=== PATIENT | female | born 1945 | race Caucasian/White ===

== ENCOUNTER 2025-03-25 14:15 | Outpatient (RCR) | payer MEDICARE, SELFPAY ==
[2025-03-04 14:20] VITALS: BP 157/76; PULSE 73; RESP 16; TEMP 36.9; BMI 46.3
--- NOTE | 2025-03-04 17:22 | PCM.WC.HP ---
History of Present Illness Date of Service: 03/04/25 Chief Complaint: R holliday wound History of Wound: Karina Santana is a 79 y/o female who presents today for evaluation and management of a R holliday wound. She reports that this ulceration began as a large fluid-filled blister which then ruptured leaving behind this wound. When this first occurred in December, it was complicated by cellulitis for which she had a hospital admission 12/27-12/31 for IV antibiotic therapy and then was discharged on Augmentin for 14 days which she completed. Since being home, she has been caring for it primarily by wiping with shower wipes and bactine multiple times per day and then covering with gauze. She does have significant lymphedema which has been present over 10 years. She reports this is hereditary, her mother had it as well. She states she used to wrap her legs but got tired of doing so and admittedly has not been applying compression for a while. She has also been evaluated previously by Dr. Villa who placed venous stents in 2020, she reports this did not make any difference in her swelling; she is chronically anticoagulated with Eliquis reportedly due to the presence of these stents. She reports she saw him a few months ago and they were reportedly no concerns regarding the patency of her stents. She states her swelling has not acutely worsened at any point recently. He had directed her to order some compression wraps from [employer] however she could not find any in a size that would fit her. Her medical history is also significant for Lupus, RA, and Sjogren's syndrome for which she follows with rheumatology and takes methotrexate. She is not diabetic. She does not smoke. Her mobility is limited due to pain from her autoimmune conditions and her severe lymphedema. [facility] Home Medications ?Medication ?Instructions ?Recorded ?Last Taken ?Type apixaban 2.5 mg tablet (Eliquis) 2.5 mg PO BID 03/04/25 Unknown History baclofen 10 mg tablet 5 - 10 mg PO TID PRN PRN muscle 03/04/25 Unknown History spasm cholecalciferol (vitamin D3) 1,250 2,500 mcg PO QWEEK 03/04/25 Unknown History mcg (50,000 unit) capsule folic acid 1 mg tablet 4 mg PO DAILY 03/04/25 Unknown History hydroxychloroquine 200 mg tablet 200 mg PO BID 03/04/25 Unknown History levothyroxine 100 mcg tablet 100 mcg PO DAILY 03/04/25 Unknown History methotrexate sodium 2.5 mg tablet 7.5 mg PO QWEEK 03/04/25 Unknown History mupirocin 2 % topical ointment topical 03/04/25 Unknown History nystatin 100,000 unit/gram topical topical 03/04/25 Unknown History powder (Klayesta) pantoprazole 40 mg tablet,delayed 40 mg PO DAILY 03/04/25 Unknown History release pilocarpine HCl 5 mg tablet 5 mg PO 5X/DAY 03/04/25 Unknown History potassium chloride 20 mEq 40 meq PO DAILY 03/04/25 Unknown History tablet,extended release(part/cryst) (Klor-Con M) pregabalin 75 mg capsule 75 mg PO TID 03/04/25 Unknown History sulfamethoxazole 400 tab 03/04/25 Unknown History mg-trimethoprim 80 mg tablet Allergy/AdvReac Type Severity Reaction Status Date / Time NSAIDS (Non-Steroidal AdvReac Other Verified 03/04/25 14:01 Anti-Inflamma Social History Smoking Status: Never smoker Vital Signs Vital Signs Vital Signs: 03/04/25 14:20 Temperature 98.4 F Temperature Source Temporal Pulse Rate 73 Respiratory Rate 16 Blood Pressure 157/76 H Blood Pressure Mean 103 Blood Pressure Source Monitor Blood Pressure Position Sitting Blood Pressure Location Left Forearm Weight Weight: 270 lb 3.969 oz Body Mass Index (BMI) 46.3 Physical Exam Const alert, oriented x3 and no apparent distress General Appearance: cooperative HEENT normocephalic, head/scalp atraumatic, hearing grossly normal bilaterally, external ears normal and external nose normal Eyes General Eye: normal appearance of both eyes Neck General: normal visual inspection and trachea midline Lymph Lymphatic: lymphedema elephantiasis Resp normal respiratory effort and normal air movement Effort and Inspection: able to speak in complete sentences; Negative for labored, grunting or stridor Cardio regular rate and regular rhythm Extremity Extremity Narrative: Significant bilateral lower extremity edema consistent with elephantiasis/stage IV lymphedema Skin Wounds: wounds noted Wound Narrative: R holliday with large, superficial ulceration with pink base with moderate slough/bioburden; there lipodermatosclerosis bilaterally but otherwise no excessive erythema/warmth and no foul odor. Serous drainage. Neuro CN's II-XII intact bilaterally, moves all extremities and no focal motor deficits Speech: speech normal Psych mental status grossly normal Appearance: grossly normal Attitude: calm and engaged Activity / Motor Behavior: appropriate eye contact Speech: normal speech Debridement Note Debridement Note Wound debrided: R anterior holliday Laterality: Right Type of Debridement: Excisional debridement Anesthesia Used: 5% Lidocaine Gel Depth: Down to and including healthy tissue Percentage of wound debrided: 100 Instrument Used: 7mm curette Tissue Removed: slough, devitalized tissue Severity: Limited To Skin Breakdown Amount of bleeding with debridement: Mild Bleeding Controlled with: Pressure Patient tolerated procedure: Patient tolerated procedure well No debridement was completed: No debridement was completed today Post-Debridement Measurements and Additional Note: Post-Debridement Measurements/Treatment - Nurse 1 - General Ulcer Assessment Start: 03/04/25 14:20 Freq: Status: Active Protocol: VICK Activity Type Activity Date Activity User E-sign Co-sign Detail Recorded Client Recorded Date Recorded By Document 03/04/25 14:20 CP [id number] 03/04/25 14:36 CP Edit Result 03/04/25 14:20 CP (1) [id number] 03/04/25 15:42 DL (1) Weight => 270 lb 3.969 oz Weight in Pounds => 270.2 lbs Body Mass Index (BMI) => 46.3 BMI Classification => Obese 03/04/25 14:20 - Today's Visit Information Type of service Initial Visit Arrival Mode Wheelchair Patient Identification Verified (Name & Yes ) Patient Requires Transmission-Based No Precautions Height and Weight Height 5 ft 4 in Weight 270 lb 3.969 oz Weight in Pounds 270.2 lbs Body Mass Index (BMI) 46.3 BMI Classification Obese Vital Signs Temperature (97.8 F-99.1 F) 98.4 F Temperature Source Temporal Pulse Rate (60-100) 73 Pulse Location Monitor Respiratory Rate (12-18) 16 Respiratory rate source Observation Blood Pressure (90/60-120/80) 157/76 H Blood Pressure Mean 103 Source Monitor Position Sitting Blood Pressure Location Left Forearm Pain Scale: 0-10 Numeric Is Patient Pain Free? No generalized -Description Aching -Duration (hours) Chronic -Pain Behavior No Change in Behavior -Alleviating Factors/Interventions Medication -Effectiveness of Alleviating Factor/ Moderately Intervention effective Lower Extremity Assessment/ Foot Assessment/ Toe Nail Assessment Right -Dorsalis Pedis Doppler Multiphasic -Hair Growth on Legs No -Hair Growth on Toes No -Temperature of Extremity Warm -Dependent Rubor Yes -Prior Foot Ulcer No -Charcot Joint No -Prior Amputation No -Thick No -Discolored Yes -Deformed No -Improper Length & Hygeine Yes Left -Dorsalis Pedis Palpable Yes -Dorsalis Pedis Doppler Multiphasic -Hair Growth on Legs No -Hair Growth on Toes No -Temperature of Extremity Warm -Capillary Refill Less than 3 Seconds -Dependent Rubor Yes -Lipodermatosclerosis Yes -Prior Foot Ulcer No -Charcot Joint No -Prior Amputation No -Thick Yes -Discolored No -Deformed No -Improper Length & Hygeine No Communication Assessment Preferred language Mongolian Debone Supervisor Required No Able to Read Yes Able to Write Yes Communication Tools None Caregiver Communication Skills No Impairment Impairment Right Hearing Abillity Normal Left Hearing Abillity Normal Visual Assistive Devices Glasses Teaching Assessment Preferences Verbal,Written, Demonstration Barriers to Learning None Readiness To Learn Excellent Willingness to Engage in Self Management High Activies Readiness to Engage in Self Management High Activities Anxiety Level Calm Cooperation Cooperative Perception Coherent Interest in Health Problem Asks Questions Education Importance Acknowledges Need Does Patient Smoke tobacco or other No substances Smoking Status Never smoker Is Patient Diabetic No Functional Assessment Recent Decline in Ability to Perform Ambulation, Bathing Assistive Device With Patient N/A Culture/Voodoo/Sales Representative [employer] Cultural/Voodoo Needs that may affect No Treatment Plan Would you allow our hospital call circuit worker to No meet you for the purpose of spiritual/ emotional support? Sales Representative [employer] to contact place of methodist No Teaching: Wound Center *Welcome to the Wound Center -Person Taught Patient,Family -Teaching Method Discussion -Response to teaching Verbalize Understanding WC - Nurse 1 - General Ulcer Measurement Start: 03/04/25 14:20 Freq: Status: Active Protocol: Activity Type Activity Date Activity User E-sign Co-sign Detail Recorded Client Recorded Date Recorded By Document 03/04/25 14:20 CP [id number] 03/04/25 14:36 CP 03/04/25 14:20 Wound Center Nurse 1 1 right ant lower extrem -Current Size (cm) - Length 7 -Current Size (cm) - Width 7 -Current Size (cm) - Depth 0.1 -Total Square Cm 49 -Photo Taken Yes -Epithelialization None Present -Tunneling No -Undermining/Tunneling No -Exudate Amt Small -Exudate Type Serous -Wound Margin Flat & Intact -Granulation Amt Large (67-100%) -Granulation Quality Red -Slough/Fibrin No -Structure Exposed N/A -Texture (Mari-wound Skin Appearance) No Abnormality -Moisture (Mari-wound Skin Appearance) No Abnormality -Color (Mari-wound Skin Appearance) No Abnormality -Temperature (Mari-wound Skin No Abnormality Appearance) (Pt Warm) -Tenderness on Palpation (Mari-wound No Skin Appearance) -Ulcer Cleansing Rinsed/ Irrigated with Saline -Foul Odor after Cleansing No -Anesthetic Used 4% Lidocaine Solution Right Calf (cm) 68 Right Ankle (cm) 39.5 Left Calf (cm) 71.5 Left Ankle (cm) 42 WC - Nurse 2 - General Ulcer CM Notes Start: 03/04/25 14:20 Freq: Status: Active Protocol: Activity Type Activity Date Activity User E-sign Co-sign Detail Recorded Client Recorded Date Recorded By Document 03/04/25 15:00 [id number] 03/04/25 15:15 03/04/25 15:00 Wound Center Nurse 2 1 right ant lower extrem -Time 15:00 -Correct Patient Yes -Correct Side, Site, Position Yes -Correct Procedure Yes -Procedure Performed Yes -Type of Procedure Debridement -Clinical Debridement Subcutaneous -Tissue Removed Subcutaneous -Post Debridement (cm) - Length 7.5 -Post Debridement (cm) - Width 7.2 -Post Debridement (cm) - Depth 0.1 -Total Square (Post) (cm) 54.00 -Area of Debridement (cm) - Length 7.5 -Area of Debridement (cm) - Width 7.2 -Total Square (Area) (cm) 54.00 -Tunneling No -Undermining/Tunneling No -Circular Undermining No -Wound/Ulcer Outcome Not Healed -Ulcer Cleansing Rinsed/ Irrigated with Saline -Foul Odor after Cleansing No -Bioengineered Tissue No -Bleeding Controlled with Pressure -Treatment Response Procedure Tolerated Well -Offloading No -Debridement - Subq, 1st 20sq cm Yes -Debridement, SubQ, ea addt'l 20sq cm 2 or part thereof Pain Scale: 0-10 Numeric Is Patient Pain Free? Yes WC - Nurse 3 - General Ulcer D/C NN Start: 03/04/25 14:20 Freq: Status: Active Protocol: Activity Type Activity Date Activity User E-sign Co-sign Detail Recorded Client Recorded Date Recorded By Document 03/04/25 15:36 [facility] [id number] 03/04/25 15:38 [facility] 03/04/25 15:36 Wound Care Center Nurse 3 1 right ant lower extrem -Ulcer Cleansing Rinsed/ Irrigated with Saline -Foul Odor after Cleansing No -Primary Dressing Applied Aquacel Extra -Other Dressing drsg per dl washtub worker -Aquacel Extra 1 BLE -Multi-Layered Wrap Application Unna Boot - Bilateral -Other applied per dl washtub worker -Unna- Bilat (Qty applied) 1 Pain Scale: 0-10 Numeric Is Patient Pain Free? Yes WC - Visit Discharge Discharge Condition Stable Ambulatory Status Wheelchair Transportation Private Auto Charges/Coding Visit Charges Office Visits / Consults: [id number] OV L3 New 30min Procedures Integumentary [id number]: [id number] Ksenia subq tissue 20 sq cm/< (debridement to the depth of the dermis) Assessment/Plan Assessment/Plan (1) Ulcer of right holliday limited to breakdown of skin: CODE(S): L97.811 - Non-pressure chronic ulcer of other part of right lower leg limited to breakdown of skin (2) Lymphedema: CODE(S): I89.0 - Lymphedema, not elsewhere classified (3) Rheumatoid arthritis: CODE(S): M06.9 - Rheumatoid arthritis, unspecified (4) Lupus: (5) Sjogren syndrome: CODE(S): M35.00 - Sjogren syndrome, unspecified (6) Debility: CODE(S): R53.81 - Other malaise PLAN: Plan She has stage IV lymphedema which seems to be hereditary and by exam may also have a component of lipedema contributing; this has led to these recurrent fluid-filled blisters and subsequent ulcerations. For both wound care and compression will apply Unna boots bilaterally this week. For the R holliday wound, will cover with Aquacel Extra followed by the Unna boot. She is instructed to leave the Unna boot in place all week and to keep it clean and dry at all times. Nurse visit skilled nursing through the week was offered for an Unna boot change but she declined due to transportation concerns. Could consider HHC in the future as needed. We discussed the importance of compression in lymphedema management. I also believe she would benefit significantly from lymphedema pumps to assist with management of her edema. We will proceed with a few weeks of compression wraps and see what progress may be made and then ultimately anticipate submitting to insurance for lymphedema pumps and compression garments. No signs/symptoms if infection on exam today. She will return to the office in 1 week, sooner as needed.
--- NOTE | 2025-03-04 17:22 | PCM.WC.HP ---
History of Present Illness Date of Service: 03/04/25 Chief Complaint: R holliday wound History of Wound: Karina Santana is a 79 y/o female who presents today for evaluation and management of a R holliday wound. She reports that this ulceration began as a large fluid-filled blister which then ruptured leaving behind this wound. When this first occurred in December, it was complicated by cellulitis for which she had a hospital admission 12/27-12/31 for IV antibiotic therapy and then was discharged on Augmentin for 14 days which she completed. Since being home, she has been caring for it primarily by wiping with shower wipes and bactine multiple times per day and then covering with gauze. She does have significant lymphedema which has been present over 10 years. She reports this is hereditary, her mother had it as well. She states she used to wrap her legs but got tired of doing so and admittedly has not been applying compression for a while. She has also been evaluated previously by Dr. Villa who placed venous stents in 2020, she reports this did not make any difference in her swelling; she is chronically anticoagulated with Eliquis reportedly due to the presence of these stents. She reports she saw him a few months ago and they were reportedly no concerns regarding the patency of her stents. She states her swelling has not acutely worsened at any point recently. He had directed her to order some compression wraps from [employer] however she could not find any in a size that would fit her. Her medical history is also significant for Lupus, RA, and Sjogren's syndrome for which she follows with rheumatology and takes methotrexate. She is not diabetic. She does not smoke. Her mobility is limited due to pain from her autoimmune conditions and her severe lymphedema. [facility] Home Medications ?Medication ?Instructions ?Recorded ?Last Taken ?Type apixaban 2.5 mg tablet (Eliquis) 2.5 mg PO BID 03/04/25 Unknown History baclofen 10 mg tablet 5 - 10 mg PO TID PRN PRN muscle 03/04/25 Unknown History spasm cholecalciferol (vitamin D3) 1,250 2,500 mcg PO QWEEK 03/04/25 Unknown History mcg (50,000 unit) capsule folic acid 1 mg tablet 4 mg PO DAILY 03/04/25 Unknown History hydroxychloroquine 200 mg tablet 200 mg PO BID 03/04/25 Unknown History levothyroxine 100 mcg tablet 100 mcg PO DAILY 03/04/25 Unknown History methotrexate sodium 2.5 mg tablet 7.5 mg PO QWEEK 03/04/25 Unknown History mupirocin 2 % topical ointment topical 03/04/25 Unknown History nystatin 100,000 unit/gram topical topical 03/04/25 Unknown History powder (Klayesta) pantoprazole 40 mg tablet,delayed 40 mg PO DAILY 03/04/25 Unknown History release pilocarpine HCl 5 mg tablet 5 mg PO 5X/DAY 03/04/25 Unknown History potassium chloride 20 mEq 40 meq PO DAILY 03/04/25 Unknown History tablet,extended release(part/cryst) (Klor-Con M) pregabalin 75 mg capsule 75 mg PO TID 03/04/25 Unknown History sulfamethoxazole 400 tab 03/04/25 Unknown History mg-trimethoprim 80 mg tablet Allergy/AdvReac Type Severity Reaction Status Date / Time NSAIDS (Non-Steroidal AdvReac Other Verified 03/04/25 14:01 Anti-Inflamma Social History Smoking Status: Never smoker Vital Signs Vital Signs Vital Signs: 03/04/25 14:20 Temperature 98.4 F Temperature Source Temporal Pulse Rate 73 Respiratory Rate 16 Blood Pressure 157/76 H Blood Pressure Mean 103 Blood Pressure Source Monitor Blood Pressure Position Sitting Blood Pressure Location Left Forearm Weight Weight: 270 lb 3.969 oz Body Mass Index (BMI) 46.3 Physical Exam Const alert, oriented x3 and no apparent distress General Appearance: cooperative HEENT normocephalic, head/scalp atraumatic, hearing grossly normal bilaterally, external ears normal and external nose normal Eyes General Eye: normal appearance of both eyes Neck General: normal visual inspection and trachea midline Lymph Lymphatic: lymphedema elephantiasis Resp normal respiratory effort and normal air movement Effort and Inspection: able to speak in complete sentences; Negative for labored, grunting or stridor Cardio regular rate and regular rhythm Extremity Extremity Narrative: Significant bilateral lower extremity edema consistent with elephantiasis/stage IV lymphedema Skin Wounds: wounds noted Wound Narrative: R holliday with large, superficial ulceration with pink base with moderate slough/bioburden; there lipodermatosclerosis bilaterally but otherwise no excessive erythema/warmth and no foul odor. Serous drainage. Neuro CN's II-XII intact bilaterally, moves all extremities and no focal motor deficits Speech: speech normal Psych mental status grossly normal Appearance: grossly normal Attitude: calm and engaged Activity / Motor Behavior: appropriate eye contact Speech: normal speech Debridement Note Debridement Note Wound debrided: R anterior holliday Laterality: Right Type of Debridement: Excisional debridement Anesthesia Used: 5% Lidocaine Gel Depth: Down to and including healthy tissue Percentage of wound debrided: 100 Instrument Used: 7mm curette Tissue Removed: slough, devitalized tissue Severity: Limited To Skin Breakdown Amount of bleeding with debridement: Mild Bleeding Controlled with: Pressure Patient tolerated procedure: Patient tolerated procedure well No debridement was completed: No debridement was completed today Post-Debridement Measurements and Additional Note: Post-Debridement Measurements/Treatment - Nurse 1 - General Ulcer Assessment Start: 03/04/25 14:20 Freq: Status: Active Protocol: VICK Activity Type Activity Date Activity User E-sign Co-sign Detail Recorded Client Recorded Date Recorded By Document 03/04/25 14:20 CP [id number] 03/04/25 14:36 CP Edit Result 03/04/25 14:20 CP (1) [id number] 03/04/25 15:42 DL (1) Weight => 270 lb 3.969 oz Weight in Pounds => 270.2 lbs Body Mass Index (BMI) => 46.3 BMI Classification => Obese 03/04/25 14:20 - Today's Visit Information Type of service Initial Visit Arrival Mode Wheelchair Patient Identification Verified (Name & Yes ) Patient Requires Transmission-Based No Precautions Height and Weight Height 5 ft 4 in Weight 270 lb 3.969 oz Weight in Pounds 270.2 lbs Body Mass Index (BMI) 46.3 BMI Classification Obese Vital Signs Temperature (97.8 F-99.1 F) 98.4 F Temperature Source Temporal Pulse Rate (60-100) 73 Pulse Location Monitor Respiratory Rate (12-18) 16 Respiratory rate source Observation Blood Pressure (90/60-120/80) 157/76 H Blood Pressure Mean 103 Source Monitor Position Sitting Blood Pressure Location Left Forearm Pain Scale: 0-10 Numeric Is Patient Pain Free? No generalized -Description Aching -Duration (hours) Chronic -Pain Behavior No Change in Behavior -Alleviating Factors/Interventions Medication -Effectiveness of Alleviating Factor/ Moderately Intervention effective Lower Extremity Assessment/ Foot Assessment/ Toe Nail Assessment Right -Dorsalis Pedis Doppler Multiphasic -Hair Growth on Legs No -Hair Growth on Toes No -Temperature of Extremity Warm -Dependent Rubor Yes -Prior Foot Ulcer No -Charcot Joint No -Prior Amputation No -Thick No -Discolored Yes -Deformed No -Improper Length & Hygeine Yes Left -Dorsalis Pedis Palpable Yes -Dorsalis Pedis Doppler Multiphasic -Hair Growth on Legs No -Hair Growth on Toes No -Temperature of Extremity Warm -Capillary Refill Less than 3 Seconds -Dependent Rubor Yes -Lipodermatosclerosis Yes -Prior Foot Ulcer No -Charcot Joint No -Prior Amputation No -Thick Yes -Discolored No -Deformed No -Improper Length & Hygeine No Communication Assessment Preferred language Mexican Lead Tank Mechanic Required No Able to Read Yes Able to Write Yes Communication Tools None Caregiver Communication Skills No Impairment Impairment Right Hearing Abillity Normal Left Hearing Abillity Normal Visual Assistive Devices Glasses Teaching Assessment Preferences Verbal,Written, Demonstration Barriers to Learning None Readiness To Learn Excellent Willingness to Engage in Self Management High Activies Readiness to Engage in Self Management High Activities Anxiety Level Calm Cooperation Cooperative Perception Coherent Interest in Health Problem Asks Questions Education Importance Acknowledges Need Does Patient Smoke tobacco or other No substances Smoking Status Never smoker Is Patient Diabetic No Functional Assessment Recent Decline in Ability to Perform Ambulation, Bathing Assistive Device With Patient N/A Culture/Baptist/Clinical Administrative Coordinator Cultural/Baptist Needs that may affect No Treatment Plan Would you allow our hospital cashier ticket selling to No meet you for the purpose of spiritual/ emotional support? Clinical Administrative Coordinator to contact place of quaker No Teaching: Wound Center *Welcome to the Wound Center -Person Taught Patient,Family -Teaching Method Discussion -Response to teaching Verbalize Understanding WC - Nurse 1 - General Ulcer Measurement Start: 03/04/25 14:20 Freq: Status: Active Protocol: Activity Type Activity Date Activity User E-sign Co-sign Detail Recorded Client Recorded Date Recorded By Document 03/04/25 14:20 CP [id number] 03/04/25 14:36 CP 03/04/25 14:20 Wound Center Nurse 1 1 right ant lower extrem -Current Size (cm) - Length 7 -Current Size (cm) - Width 7 -Current Size (cm) - Depth 0.1 -Total Square Cm 49 -Photo Taken Yes -Epithelialization None Present -Tunneling No -Undermining/Tunneling No -Exudate Amt Small -Exudate Type Serous -Wound Margin Flat & Intact -Granulation Amt Large (67-100%) -Granulation Quality Red -Slough/Fibrin No -Structure Exposed N/A -Texture (Mari-wound Skin Appearance) No Abnormality -Moisture (Mari-wound Skin Appearance) No Abnormality -Color (Mari-wound Skin Appearance) No Abnormality -Temperature (Mari-wound Skin No Abnormality Appearance) (Pt Warm) -Tenderness on Palpation (Mari-wound No Skin Appearance) -Ulcer Cleansing Rinsed/ Irrigated with Saline -Foul Odor after Cleansing No -Anesthetic Used 4% Lidocaine Solution Right Calf (cm) 68 Right Ankle (cm) 39.5 Left Calf (cm) 71.5 Left Ankle (cm) 42 WC - Nurse 2 - General Ulcer CM Notes Start: 03/04/25 14:20 Freq: Status: Active Protocol: Activity Type Activity Date Activity User E-sign Co-sign Detail Recorded Client Recorded Date Recorded By Document 03/04/25 15:00 [id number] 03/04/25 15:15 03/04/25 15:00 Wound Center Nurse 2 1 right ant lower extrem -Time 15:00 -Correct Patient Yes -Correct Side, Site, Position Yes -Correct Procedure Yes -Procedure Performed Yes -Type of Procedure Debridement -Clinical Debridement Subcutaneous -Tissue Removed Subcutaneous -Post Debridement (cm) - Length 7.5 -Post Debridement (cm) - Width 7.2 -Post Debridement (cm) - Depth 0.1 -Total Square (Post) (cm) 54.00 -Area of Debridement (cm) - Length 7.5 -Area of Debridement (cm) - Width 7.2 -Total Square (Area) (cm) 54.00 -Tunneling No -Undermining/Tunneling No -Circular Undermining No -Wound/Ulcer Outcome Not Healed -Ulcer Cleansing Rinsed/ Irrigated with Saline -Foul Odor after Cleansing No -Bioengineered Tissue No -Bleeding Controlled with Pressure -Treatment Response Procedure Tolerated Well -Offloading No -Debridement - Subq, 1st 20sq cm Yes -Debridement, SubQ, ea addt'l 20sq cm 2 or part thereof Pain Scale: 0-10 Numeric Is Patient Pain Free? Yes WC - Nurse 3 - General Ulcer D/C NN Start: 03/04/25 14:20 Freq: Status: Active Protocol: Activity Type Activity Date Activity User E-sign Co-sign Detail Recorded Client Recorded Date Recorded By Document 03/04/25 15:36 [facility] [id number] 03/04/25 15:38 [facility] 03/04/25 15:36 Wound Care Center Nurse 3 1 right ant lower extrem -Ulcer Cleansing Rinsed/ Irrigated with Saline -Foul Odor after Cleansing No -Primary Dressing Applied Aquacel Extra -Other Dressing drsg per dl property and casualty insurance agent -Aquacel Extra 1 BLE -Multi-Layered Wrap Application Unna Boot - Bilateral -Other applied per dl property and casualty insurance agent -Unna- Bilat (Qty applied) 1 Pain Scale: 0-10 Numeric Is Patient Pain Free? Yes WC - Visit Discharge Discharge Condition Stable Ambulatory Status Wheelchair Transportation Private Auto Charges/Coding Visit Charges Office Visits / Consults: [id number] OV L3 New 30min Procedures Integumentary [id number]: [id number] Ksenia subq tissue 20 sq cm/< (debridement to the depth of the dermis) Assessment/Plan Assessment/Plan (1) Ulcer of right holliday limited to breakdown of skin: CODE(S): L97.811 - Non-pressure chronic ulcer of other part of right lower leg limited to breakdown of skin (2) Lymphedema: CODE(S): I89.0 - Lymphedema, not elsewhere classified (3) Rheumatoid arthritis: CODE(S): M06.9 - Rheumatoid arthritis, unspecified (4) Lupus: (5) Sjogren syndrome: CODE(S): M35.00 - Sjogren syndrome, unspecified (6) Debility: CODE(S): R53.81 - Other malaise PLAN: Plan She has stage IV lymphedema which seems to be hereditary and by exam may also have a component of lipedema contributing; this has led to these recurrent fluid-filled blisters and subsequent ulcerations. For both wound care and compression will apply Unna boots bilaterally this week. For the R holliday wound, will cover with Aquacel Extra followed by the Unna boot. She is instructed to leave the Unna boot in place all week and to keep it clean and dry at all times. Nurse visit nursing home through the week was offered for an Unna boot change but she declined due to transportation concerns. Could consider HHC in the future as needed. We discussed the importance of compression in lymphedema management. I also believe she would benefit significantly from lymphedema pumps to assist with management of her edema. We will proceed with a few weeks of compression wraps and see what progress may be made and then ultimately anticipate submitting to insurance for lymphedema pumps and compression garments. No signs/symptoms if infection on exam today. She will return to the office in 1 week, sooner as needed.
--- NOTE | 2025-03-05 10:20 | WC ---
PHOTO 03/04/25 RIGHT ANTERIOR LEG
--- NOTE | 2025-03-05 10:20 | WC ---
PHOTO 03/04/25 RIGHT ANTERIOR LEG
--- NOTE | 2025-03-11 08:55 | PCM.WC.PN ---
History of Present Illness Date of Service: 03/11/25 Chief Complaint: R holliday wound History of Wound: Karina Santana is a 79 y/o female who presents today for evaluation and management of a R holliday wound. She reports that this ulceration began as a large fluid-filled blister which then ruptured leaving behind this wound. When this first occurred in December, it was complicated by cellulitis for which she had a hospital admission 12/27-12/31 for IV antibiotic therapy and then was discharged on Augmentin for 14 days which she completed. Since being home, she has been caring for it primarily by wiping with shower wipes and bactine multiple times per day and then covering with gauze. She does have significant lymphedema which has been present over 10 years. She reports this is hereditary, her mother had it as well. She states she used to wrap her legs but got tired of doing so and admittedly has not been applying compression for a while. She has also been evaluated previously by Dr. Villa who placed venous stents in 2020, she reports this did not make any difference in her swelling; she is chronically anticoagulated with Eliquis reportedly due to the presence of these stents. She reports she saw him a few months ago and they were reportedly no concerns regarding the patency of her stents. She states her swelling has not acutely worsened at any point recently. He had directed her to order some compression wraps from [employer] however she could not find any in a size that would fit her. Her medical history is also significant for Lupus, RA, and Sjogren's syndrome for which she follows with rheumatology and takes methotrexate. She is not diabetic. She does not smoke. Her mobility is limited due to pain from her autoimmune conditions and her severe lymphedema. Subjective Subjective Karina has done well over this past week. She tolerated the Unna boots well, they did get itchy by the end of the week but she resisted scratching. She has no new concerns. Objective Data Objective Data Vital Signs: Vital Signs Temp Pulse Resp BP 98.4 F 73 16 157/76 H 03/04/25 14:20 03/04/25 14:20 03/04/25 14:20 03/04/25 14:20 Weight: 270 lb 3.969 oz Body Mass Index (BMI) 46.3 Charges/Coding Visit Charges Office Visits / Consults: 12447 OV L3 Est 20min Physical Exam Const alert, oriented x3 and no apparent distress General Appearance: cooperative HEENT normocephalic, head/scalp atraumatic, hearing grossly normal bilaterally, external ears normal and external nose normal Eyes General Eye: normal appearance of both eyes Neck General: normal visual inspection and trachea midline Lymph Lymphatic: lymphedema elephantiasis Resp normal respiratory effort and normal air movement Effort and Inspection: able to speak in complete sentences; Negative for labored, grunting or stridor Cardio regular rate and regular rhythm Extremity Extremity Narrative: Significant bilateral lower 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 Circumference measurements as follows (centimeters): Right Calf: 56.5 Right Ankle: 36.4 Left Calf: 58 Left Ankle: 36.5 Skin Wounds: wounds noted Wound Narrative: R holliday with superficial ulceration with pink base, new tissue buds centrally without any significant slough/bioburden; there lipodermatosclerosis bilaterally but otherwise no excessive erythema/warmth and no foul odor. Serous drainage. Neuro CN's II-XII intact bilaterally, moves all extremities and no focal motor deficits Speech: speech normal Psych mental status grossly normal Appearance: grossly normal Attitude: calm and engaged Activity / Motor Behavior: appropriate eye contact Speech: normal speech Debridement Note Debridement Note No debridement was completed: No debridement was completed today Post-Debridement Measurements and Additional Note: Post-Debridement Measurements/Treatment - Nurse 1 - General Ulcer Assessment Start: 03/04/25 14:20 Freq: Status: Active Protocol: WC.LOWCAMMYT Activity Type Activity Date Activity User E-sign Co-sign Detail Recorded Client Recorded Date Recorded By Document 03/04/25 14:20 CP [id number] 03/04/25 14:36 CP Edit Result 03/04/25 14:20 CP (1) [id number] 03/04/25 15:42 DL (1) Weight => 270 lb 3.969 oz Weight in Pounds => 270.2 lbs Body Mass Index (BMI) => 46.3 BMI Classification => Obese 03/04/25 14:20 - Today's Visit Information Type of service Initial Visit Arrival Mode Wheelchair Patient Identification Verified (Name & Yes ) Patient Requires Transmission-Based No Precautions Height and Weight Height 5 ft 4 in Weight 270 lb 3.969 oz Weight in Pounds 270.2 lbs Body Mass Index (BMI) 46.3 BMI Classification Obese Vital Signs Temperature (97.8 F-99.1 F) 98.4 F Temperature Source Temporal Pulse Rate (60-100) 73 Pulse Location Monitor Respiratory Rate (12-18) 16 Respiratory rate source Observation Blood Pressure (90/60-120/80) 157/76 H Blood Pressure Mean (mm Hg) 103 Source Monitor Position Sitting Blood Pressure Location Left Forearm Pain Scale: 0-10 Numeric Is Patient Pain Free? No generalized -Description Aching -Duration (hours) Chronic -Pain Behavior No Change in Behavior -Alleviating Factors/Interventions Medication -Effectiveness of Alleviating Factor/ Moderately Intervention effective Lower Extremity Assessment/ Foot Assessment/ Toe Nail Assessment Right -Dorsalis Pedis Doppler Multiphasic -Hair Growth on Legs No -Hair Growth on Toes No -Temperature of Extremity Warm -Dependent Rubor Yes -Prior Foot Ulcer No -Charcot Joint No -Prior Amputation No -Thick No -Discolored Yes -Deformed No -Improper Length & Hygeine Yes Left -Dorsalis Pedis Palpable Yes -Dorsalis Pedis Doppler Multiphasic -Hair Growth on Legs No -Hair Growth on Toes No -Temperature of Extremity Warm -Capillary Refill Less than 3 Seconds -Dependent Rubor Yes -Lipodermatosclerosis Yes -Prior Foot Ulcer No -Charcot Joint No -Prior Amputation No -Thick Yes -Discolored No -Deformed No -Improper Length & Hygeine No Communication Assessment Preferred language Swedish Credit Specialist Required No Able to Read Yes Able to Write Yes Communication Tools None Caregiver Communication Skills No Impairment Impairment Right Hearing Abillity Normal Left Hearing Abillity Normal Visual Assistive Devices Glasses Teaching Assessment Preferences Verbal,Written, Demonstration Barriers to Learning None Readiness To Learn Excellent Willingness to Engage in Self Management High Activies Readiness to Engage in Self Management High Activities Anxiety Level Calm Cooperation Cooperative Perception Coherent Interest in Health Problem Asks Questions Education Importance Acknowledges Need Does Patient Smoke tobacco or other No substances Smoking Status Never smoker Is Patient Diabetic No Functional Assessment Recent Decline in Ability to Perform Ambulation, Bathing Assistive Device With Patient N/A Culture/Anglican/Civil Engineering Professor Cultural/Anglican Needs that may affect No Treatment Plan Would you allow our hospital chief of staff to No meet you for the purpose of spiritual/ emotional support? Civil Engineering Professor to contact place of moravian No Teaching: Wound Center *Welcome to the Wound Center -Person Taught Patient,Family -Teaching Method Discussion -Response to teaching Verbalize Understanding WC - Nurse 1 - General Ulcer Measurement Start: 03/04/25 14:20 Freq: Status: Active Protocol: Activity Type Activity Date Activity User E-sign Co-sign Detail Recorded Client Recorded Date Recorded By Document 03/04/25 14:20 [id number] 03/04/25 14:36 03/04/25 14:20 Wound Center Nurse 1 1 right ant lower extrem -Current Size (cm) - Length 7 -Current Size (cm) - Width 7 -Current Size (cm) - Depth 0.1 -Total Square Cm 49 -Photo Taken Yes -Epithelialization None Present -Tunneling No -Undermining/Tunneling No -Exudate Amt Small -Exudate Type Serous -Wound Margin Flat & Intact -Granulation Amt Large (67-100%) -Granulation Quality Red -Slough/Fibrin No -Structure Exposed N/A -Texture (Mari-wound Skin Appearance) No Abnormality -Moisture (Mari-wound Skin Appearance) No Abnormality -Color (Mari-wound Skin Appearance) No Abnormality -Temperature (Mari-wound Skin No Abnormality Appearance) (Pt Warm) -Tenderness on Palpation (Mari-wound No Skin Appearance) -Ulcer Cleansing Rinsed/ Irrigated with Saline -Foul Odor after Cleansing No -Anesthetic Used 4% Lidocaine Solution Right Calf (cm) 68 Right Ankle (cm) 39.5 Left Calf (cm) 71.5 Left Ankle (cm) 42 WC - Nurse 2 - General Ulcer CM Notes Start: 03/04/25 14:20 Freq: Status: Active Protocol: Activity Type Activity Date Activity User E-sign Co-sign Detail Recorded Client Recorded Date Recorded By Document 03/04/25 15:00 [id number] 03/04/25 15:15 03/04/25 15:00 Wound Center Nurse 2 1 right ant lower extrem -Time 15:00 -Correct Patient Yes -Correct Side, Site, Position Yes -Correct Procedure Yes -Procedure Performed Yes -Type of Procedure Debridement -Clinical Debridement Subcutaneous -Tissue Removed Subcutaneous -Post Debridement (cm) - Length 7.5 -Post Debridement (cm) - Width 7.2 -Post Debridement (cm) - Depth 0.1 -Total Square (Post) (cm) 54.00 -Area of Debridement (cm) - Length 7.5 -Area of Debridement (cm) - Width 7.2 -Total Square (Area) (cm) 54.00 -Tunneling No -Undermining/Tunneling No -Circular Undermining No -Wound/Ulcer Outcome Not Healed -Ulcer Cleansing Rinsed/ Irrigated with Saline -Foul Odor after Cleansing No -Bioengineered Tissue No -Bleeding Controlled with Pressure -Treatment Response Procedure Tolerated Well -Offloading No -Debridement - Subq, 1st 20sq cm Yes -Debridement, SubQ, ea addt'l 20sq cm 2 or part thereof Pain Scale: 0-10 Numeric Is Patient Pain Free? Yes - Nurse 3 - General Ulcer D/C NN Start: 03/04/25 14:20 Freq: Status: Active Protocol: Activity Type Activity Date Activity User E-sign Co-sign Detail Recorded Client Recorded Date Recorded By Document 03/04/25 15:36 [facility] [id number] 03/04/25 15:38 [facility] 03/04/25 15:36 Wound Care Center Nurse 3 1 right ant lower extrem -Ulcer Cleansing Rinsed/ Irrigated with Saline -Foul Odor after Cleansing No -Primary Dressing Applied Aquacel Extra -Other Dressing drsg per dl gambling dealer -Aquacel Extra 1 BLE -Multi-Layered Wrap Application Unna Boot - Bilateral -Other applied per dl gambling dealer -Unna- Bilat (Qty applied) 1 Pain Scale: 0-10 Numeric Is Patient Pain Free? Yes - Visit Discharge Discharge Condition Stable Ambulatory Status Wheelchair Transportation Private Auto Assessment/Plan Assessment/Plan (1) Ulcer of right holliday limited to breakdown of skin: CODE(S): L97.811 - Non-pressure chronic ulcer of other part of right lower leg limited to breakdown of skin (2) Lymphedema: CODE(S): I89.0 - Lymphedema, not elsewhere classified (3) Rheumatoid arthritis: CODE(S): M06.9 - Rheumatoid arthritis, unspecified (4) Lupus: (5) Sjogren syndrome: CODE(S): M35.00 - Sjogren syndrome, unspecified (6) Debility: CODE(S): R53.81 - Other malaise PLAN: Plan She has stage IV lymphedema which seems to be hereditary and by exam may also have a component of lipedema contributing; this has led to these recurrent fluid-filled blisters and subsequent ulcerations. Her edema is significantly improved this week compared to last, she is down >10 cm in each calf. The wound has also significantly reduced in size and overall has improved appearance. Will proceed with 3M wraps for compression this week. For the R holliday wound, will cover with Aquacel Extra followed by 3M wraps. She is instructed to leave the wraps in place all week and to keep it clean and dry at all times. Nurse visit [facility] through the week was offered for an Unna boot change but she declined due to transportation concerns. Could consider [facility] in the future as needed. We discussed the importance of compression in lymphedema management. I also believe she would benefit significantly from lymphedema pumps to assist with management of her edema. We will proceed with a few weeks of compression wraps and see what progress may be made and then ultimately anticipate submitting to insurance for lymphedema pumps and compression garments. No signs/symptoms if infection on exam today. She will return to the office in 1 week, sooner as needed.
--- NOTE | 2025-03-11 08:55 | PCM.WC.PN ---
History of Present Illness Date of Service: 03/11/25 Chief Complaint: R holliday wound History of Wound: Karina Santana is a 79 y/o female who presents today for evaluation and management of a R holliday wound. She reports that this ulceration began as a large fluid-filled blister which then ruptured leaving behind this wound. When this first occurred in December, it was complicated by cellulitis for which she had a hospital admission 12/27-12/31 for IV antibiotic therapy and then was discharged on Augmentin for 14 days which she completed. Since being home, she has been caring for it primarily by wiping with shower wipes and bactine multiple times per day and then covering with gauze. She does have significant lymphedema which has been present over 10 years. She reports this is hereditary, her mother had it as well. She states she used to wrap her legs but got tired of doing so and admittedly has not been applying compression for a while. She has also been evaluated previously by Dr. Villa who placed venous stents in 2020, she reports this did not make any difference in her swelling; she is chronically anticoagulated with Eliquis reportedly due to the presence of these stents. She reports she saw him a few months ago and they were reportedly no concerns regarding the patency of her stents. She states her swelling has not acutely worsened at any point recently. He had directed her to order some compression wraps from [employer] however she could not find any in a size that would fit her. Her medical history is also significant for Lupus, RA, and Sjogren's syndrome for which she follows with rheumatology and takes methotrexate. She is not diabetic. She does not smoke. Her mobility is limited due to pain from her autoimmune conditions and her severe lymphedema. Subjective Subjective Karina has done well over this past week. She tolerated the Unna boots well, they did get itchy by the end of the week but she resisted scratching. She has no new concerns. Objective Data Objective Data Vital Signs: Vital Signs Temp Pulse Resp BP 98.4 F 73 16 157/76 H 03/04/25 14:20 03/04/25 14:20 03/04/25 14:20 03/04/25 14:20 Weight: 270 lb 3.969 oz Body Mass Index (BMI) 46.3 Charges/Coding Visit Charges Office Visits / Consults: [id number] OV L3 Est 20min Physical Exam Const alert, oriented x3 and no apparent distress General Appearance: cooperative HEENT normocephalic, head/scalp atraumatic, hearing grossly normal bilaterally, external ears normal and external nose normal Eyes General Eye: normal appearance of both eyes Neck General: normal visual inspection and trachea midline Lymph Lymphatic: lymphedema elephantiasis Resp normal respiratory effort and normal air movement Effort and Inspection: able to speak in complete sentences; Negative for labored, grunting or stridor Cardio regular rate and regular rhythm Extremity Extremity Narrative: Significant bilateral lower 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 Circumference measurements as follows (centimeters): Right Calf: 56.5 Right Ankle: 36.4 Left Calf: 58 Left Ankle: 36.5 Skin Wounds: wounds noted Wound Narrative: R holliday with superficial ulceration with pink base, new tissue buds centrally without any significant slough/bioburden; there lipodermatosclerosis bilaterally but otherwise no excessive erythema/warmth and no foul odor. Serous drainage. Neuro CN's II-XII intact bilaterally, moves all extremities and no focal motor deficits Speech: speech normal Psych mental status grossly normal Appearance: grossly normal Attitude: calm and engaged Activity / Motor Behavior: appropriate eye contact Speech: normal speech Debridement Note Debridement Note No debridement was completed: No debridement was completed today Post-Debridement Measurements and Additional Note: Post-Debridement Measurements/Treatment - Nurse 1 - General Ulcer Assessment Start: 03/04/25 14:20 Freq: Status: Active Protocol: WC.LOWCAMMYT Activity Type Activity Date Activity User E-sign Co-sign Detail Recorded Client Recorded Date Recorded By Document 03/04/25 14:20 CP [id number] 03/04/25 14:36 CP Edit Result 03/04/25 14:20 CP (1) [id number] 03/04/25 15:42 DL (1) Weight => 270 lb 3.969 oz Weight in Pounds => 270.2 lbs Body Mass Index (BMI) => 46.3 BMI Classification => Obese 03/04/25 14:20 - Today's Visit Information Type of service Initial Visit Arrival Mode Wheelchair Patient Identification Verified (Name & Yes ) Patient Requires Transmission-Based No Precautions Height and Weight Height 5 ft 4 in Weight 270 lb 3.969 oz Weight in Pounds 270.2 lbs Body Mass Index (BMI) 46.3 BMI Classification Obese Vital Signs Temperature (97.8 F-99.1 F) 98.4 F Temperature Source Temporal Pulse Rate (60-100) 73 Pulse Location Monitor Respiratory Rate (12-18) 16 Respiratory rate source Observation Blood Pressure (90/60-120/80) 157/76 H Blood Pressure Mean (mm Hg) 103 Source Monitor Position Sitting Blood Pressure Location Left Forearm Pain Scale: 0-10 Numeric Is Patient Pain Free? No generalized -Description Aching -Duration (hours) Chronic -Pain Behavior No Change in Behavior -Alleviating Factors/Interventions Medication -Effectiveness of Alleviating Factor/ Moderately Intervention effective Lower Extremity Assessment/ Foot Assessment/ Toe Nail Assessment Right -Dorsalis Pedis Doppler Multiphasic -Hair Growth on Legs No -Hair Growth on Toes No -Temperature of Extremity Warm -Dependent Rubor Yes -Prior Foot Ulcer No -Charcot Joint No -Prior Amputation No -Thick No -Discolored Yes -Deformed No -Improper Length & Hygeine Yes Left -Dorsalis Pedis Palpable Yes -Dorsalis Pedis Doppler Multiphasic -Hair Growth on Legs No -Hair Growth on Toes No -Temperature of Extremity Warm -Capillary Refill Less than 3 Seconds -Dependent Rubor Yes -Lipodermatosclerosis Yes -Prior Foot Ulcer No -Charcot Joint No -Prior Amputation No -Thick Yes -Discolored No -Deformed No -Improper Length & Hygeine No Communication Assessment Preferred language [place] School Bus Attendant Required No Able to Read Yes Able to Write Yes Communication Tools None Caregiver Communication Skills No Impairment Impairment Right Hearing Abillity Normal Left Hearing Abillity Normal Visual Assistive Devices Glasses Teaching Assessment Preferences Verbal,Written, Demonstration Barriers to Learning None Readiness To Learn Excellent Willingness to Engage in Self Management High Activies Readiness to Engage in Self Management High Activities Anxiety Level Calm Cooperation Cooperative Perception Coherent Interest in Health Problem Asks Questions Education Importance Acknowledges Need Does Patient Smoke tobacco or other No substances Smoking Status Never smoker Is Patient Diabetic No Functional Assessment Recent Decline in Ability to Perform Ambulation, Bathing Assistive Device With Patient N/A 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 Slat Basket Top Maker to contact place of mosque No Teaching: Wound Center *Welcome to the Wound Center -Person Taught Patient,Family -Teaching Method Discussion -Response to teaching Verbalize Understanding WC - Nurse 1 - General Ulcer Measurement Start: 03/04/25 14:20 Freq: Status: Active Protocol: Activity Type Activity Date Activity User E-sign Co-sign Detail Recorded Client Recorded Date Recorded By Document 03/04/25 14:20 [id number] 03/04/25 14:36 03/04/25 14:20 Wound Center Nurse 1 1 right ant lower extrem -Current Size (cm) - Length 7 -Current Size (cm) - Width 7 -Current Size (cm) - Depth 0.1 -Total Square Cm 49 -Photo Taken Yes -Epithelialization None Present -Tunneling No -Undermining/Tunneling No -Exudate Amt Small -Exudate Type Serous -Wound Margin Flat & Intact -Granulation Amt Large (67-100%) -Granulation Quality Red -Slough/Fibrin No -Structure Exposed N/A -Texture (Mari-wound Skin Appearance) No Abnormality -Moisture (Mari-wound Skin Appearance) No Abnormality -Color (Mari-wound Skin Appearance) No Abnormality -Temperature (Mari-wound Skin No Abnormality Appearance) (Pt Warm) -Tenderness on Palpation (Mari-wound No Skin Appearance) -Ulcer Cleansing Rinsed/ Irrigated with Saline -Foul Odor after Cleansing No -Anesthetic Used 4% Lidocaine Solution Right Calf (cm) 68 Right Ankle (cm) 39.5 Left Calf (cm) 71.5 Left Ankle (cm) 42 WC - Nurse 2 - General Ulcer CM Notes Start: 03/04/25 14:20 Freq: Status: Active Protocol: Activity Type Activity Date Activity User E-sign Co-sign Detail Recorded Client Recorded Date Recorded By Document 03/04/25 15:00 [id number] 03/04/25 15:15 03/04/25 15:00 Wound Center Nurse 2 1 right ant lower extrem -Time 15:00 -Correct Patient Yes -Correct Side, Site, Position Yes -Correct Procedure Yes -Procedure Performed Yes -Type of Procedure Debridement -Clinical Debridement Subcutaneous -Tissue Removed Subcutaneous -Post Debridement (cm) - Length 7.5 -Post Debridement (cm) - Width 7.2 -Post Debridement (cm) - Depth 0.1 -Total Square (Post) (cm) 54.00 -Area of Debridement (cm) - Length 7.5 -Area of Debridement (cm) - Width 7.2 -Total Square (Area) (cm) 54.00 -Tunneling No -Undermining/Tunneling No -Circular Undermining No -Wound/Ulcer Outcome Not Healed -Ulcer Cleansing Rinsed/ Irrigated with Saline -Foul Odor after Cleansing No -Bioengineered Tissue No -Bleeding Controlled with Pressure -Treatment Response Procedure Tolerated Well -Offloading No -Debridement - Subq, 1st 20sq cm Yes -Debridement, SubQ, ea addt'l 20sq cm 2 or part thereof Pain Scale: 0-10 Numeric Is Patient Pain Free? Yes - Nurse 3 - General Ulcer D/C NN Start: 03/04/25 14:20 Freq: Status: Active Protocol: Activity Type Activity Date Activity User E-sign Co-sign Detail Recorded Client Recorded Date Recorded By Document 03/04/25 15:36 [facility] [id number] 03/04/25 15:38 [facility] 03/04/25 15:36 Wound Care Center Nurse 3 1 right ant lower extrem -Ulcer Cleansing Rinsed/ Irrigated with Saline -Foul Odor after Cleansing No -Primary Dressing Applied Aquacel Extra -Other Dressing drsg per dl garage helper -Aquacel Extra 1 BLE -Multi-Layered Wrap Application Unna Boot - Bilateral -Other applied per dl garage helper -Unna- Bilat (Qty applied) 1 Pain Scale: 0-10 Numeric Is Patient Pain Free? Yes - Visit Discharge Discharge Condition Stable Ambulatory Status Wheelchair Transportation Private Auto Assessment/Plan Assessment/Plan (1) Ulcer of right holliday limited to breakdown of skin: CODE(S): L97.811 - Non-pressure chronic ulcer of other part of right lower leg limited to breakdown of skin (2) Lymphedema: CODE(S): I89.0 - Lymphedema, not elsewhere classified (3) Rheumatoid arthritis: CODE(S): M06.9 - Rheumatoid arthritis, unspecified (4) Lupus: (5) Sjogren syndrome: CODE(S): M35.00 - Sjogren syndrome, unspecified (6) Debility: CODE(S): R53.81 - Other malaise PLAN: Plan She has stage IV lymphedema which seems to be hereditary and by exam may also have a component of lipedema contributing; this has led to these recurrent fluid-filled blisters and subsequent ulcerations. Her edema is significantly improved this week compared to last, she is down >10 cm in each calf. The wound has also significantly reduced in size and overall has improved appearance. Will proceed with 3M wraps for compression this week. For the R holliday wound, will cover with Aquacel Extra followed by 3M wraps. She is instructed to leave the wraps in place all week and to keep it clean and dry at all times. Nurse visit group home through the week was offered for an Unna boot change but she declined due to transportation concerns. Could consider [facility] in the future as needed. We discussed the importance of compression in lymphedema management. I also believe she would benefit significantly from lymphedema pumps to assist with management of her edema. We will proceed with a few weeks of compression wraps and see what progress may be made and then ultimately anticipate submitting to insurance for lymphedema pumps and compression garments. No signs/symptoms if infection on exam today. She will return to the office in 1 week, sooner as needed.
[2025-03-11 13:16] VITALS: BP 162/81; PULSE 98; RESP 22; TEMP 36.4; BMI 46.3
[2025-03-18 14:11] VITALS: BP 176/78; PULSE 100; RESP 20; TEMP 36.4; BMI 46.3
--- NOTE | 2025-03-18 16:04 | PCM.WC.PN ---
History of Present Illness Date of Service: 03/18/25 Chief Complaint: R holliday wound History of Wound: Karina Santana is a 79 y/o female who presents today for evaluation and management of a R holliday wound. She reports that this ulceration began as a large fluid-filled blister which then ruptured leaving behind this wound. When this first occurred in December, it was complicated by cellulitis for which she had a hospital admission 12/27-12/31 for IV antibiotic therapy and then was discharged on Augmentin for 14 days which she completed. Since being home, she has been caring for it primarily by wiping with shower wipes and bactine multiple times per day and then covering with gauze. She does have significant lymphedema which has been present over 10 years. She reports this is hereditary, her mother had it as well. She states she used to wrap her legs but got tired of doing so and admittedly has not been applying compression for a while. She has also been evaluated previously by Dr. Villa who placed venous stents in 2020, she reports this did not make any difference in her swelling; she is chronically anticoagulated with Eliquis reportedly due to the presence of these stents. She reports she saw him a few months ago and they were reportedly no concerns regarding the patency of her stents. She states her swelling has not acutely worsened at any point recently. He had directed her to order some compression wraps from [employer] however she could not find any in a size that would fit her. Her medical history is also significant for Lupus, RA, and Sjogren's syndrome for which she follows with rheumatology and takes methotrexate. She is not diabetic. She does not smoke. Her mobility is limited due to pain from her autoimmune conditions and her severe lymphedema. Subjective Subjective Karina did very well with the 3M wraps this week; she did remove them just prior to her appt so she could shower. Her R holliday wound has healed completely. She has noticed that her legs feel less heavy and she is able to ambulate a bit better. She is pleased with results so far. Objective Data Objective Data Vital Signs: Vital Signs Temp Pulse Resp BP 97.6 F L 100 20 H 176/78 H 03/18/25 14:11 03/18/25 14:11 03/18/25 14:11 03/18/25 14:11 Weight: 270 lb 3.969 oz Body Mass Index (BMI) 46.3 Charges/Coding Visit Charges Office Visits / Consults: [id number] OV L3 Est 20min Physical Exam Const alert, oriented x3 and no apparent distress General Appearance: cooperative HEENT normocephalic, head/scalp atraumatic, hearing grossly normal bilaterally, external ears normal and external nose normal Eyes General Eye: normal appearance of both eyes Neck General: normal visual inspection and trachea midline Lymph Lymphatic: lymphedema elephantiasis Resp normal respiratory effort and normal air movement Effort and Inspection: able to speak in complete sentences; Negative for labored, grunting or stridor Cardio regular rate and regular rhythm Extremity Extremity Narrative: Significant bilateral lower 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 Circumference measurements as follows (centimeters): Right Calf: 51.5 Right Ankle: 31.8 Left Calf: 57.2 Left Ankle: 35.5 Skin Wounds: wounds noted Wound Narrative: R holliday with superficial ulceration is completely epithelialized. Neuro CN's II-XII intact bilaterally, moves all extremities and no focal motor deficits Speech: speech normal Psych mental status grossly normal Appearance: grossly normal Attitude: calm and engaged Activity / Motor Behavior: appropriate eye contact Speech: normal speech Debridement Note Debridement Note No debridement was completed: No debridement was completed today Post-Debridement Measurements and Additional Note: Post-Debridement Measurements/Treatment - Nurse 1 - General Ulcer Assessment Start: 03/04/25 14:20 Freq: Status: Active Protocol: ALICIA.LOWWILNER Activity Type Activity Date Activity User E-sign Co-sign Detail Recorded Client Recorded Date Recorded By Document 03/04/25 14:20 CP [id number] 03/04/25 14:36 CP Edit Result 03/04/25 14:20 CP (1) [id number] 03/04/25 15:42 DL Document 03/11/25 13:16 DL [id number] 03/11/25 13:33 DL Document 03/18/25 14:11 DL [id number] 03/18/25 14:19 DL (1) Weight => 270 lb 3.969 oz Weight in Pounds => 270.2 lbs Body Mass Index (BMI) => 46.3 BMI Classification => Obese 03/04/25 03/11/25 03/18/25 14:20 13:16 14:11 - Today's Visit Information Type of service Initial Visit Follow-up Visit Follow-up Visit (Physician/GEOLOGICAL ENGINEER (Physician/GEOLOGICAL ENGINEER ) ) Arrival Mode Wheelchair Ambulatory, Ambulatory, Walker Walker Transfer Assistance Manual,None Manual Transfer Assist (Other) x1 x1 Patient Identification Verified (Name & Yes Yes Yes ) Patient Requires Transmission-Based No No No Precautions Height and Weight Height 5 ft 4 in Weight 270 lb 3.969 oz Weight in Pounds 270.2 lbs Body Mass Index (BMI) 46.3 46.3 46.3 BMI Classification Obese Obese Obese Vital Signs Temperature (97.8 F-99.1 F) 98.4 F 97.5 F L 97.6 F L Temperature Source Temporal Temporal Temporal Pulse Rate (60-100) 73 98 100 Pulse Location Monitor Monitor Monitor Respiratory Rate (12-18) 16 22 H 20 H Respiratory rate source Observation Observation Observation Blood Pressure (90/60-120/80) 157/76 H 162/81 H 176/78 H Blood Pressure Mean (mm Hg) 103 108 110 Source Monitor Monitor Monitor Position Sitting Blood Pressure Location Left Forearm History Since Last Visit- (Skip if this is Patient's initial visit) Have you changed medications since your No No last visit? Any new allergies or adverse reactions No No Had a fall/change in ADL's that may No No increase risk of falls Signs or symptoms of abuse and/or No No neglect since last visit Have you been in the hospital since your No No last visit? Has dressing in place as prescribed Yes Yes Has compression in place as prescribed Yes Yes Has offloadiing in place as prescribed N/A N/A Experienced any changes in pain level or No No management Pain Scale: 0-10 Numeric Is Patient Pain Free? No Yes Yes generalized -Description Aching -Duration (hours) Chronic -Pain Behavior No Change in Behavior -Alleviating Factors/Interventions Medication -Effectiveness of Alleviating Factor/ Moderately Intervention effective Lower Extremity Assessment/ Foot Assessment/ Toe Nail Assessment Right -Dorsalis Pedis Doppler Multiphasic -Hair Growth on Legs No -Hair Growth on Toes No -Temperature of Extremity Warm -Dependent Rubor Yes -Prior Foot Ulcer No -Charcot Joint No -Prior Amputation No -Thick No -Discolored Yes -Deformed No -Improper Length & Hygeine Yes Left -Dorsalis Pedis Palpable Yes -Dorsalis Pedis Doppler Multiphasic -Hair Growth on Legs No -Hair Growth on Toes No -Temperature of Extremity Warm -Capillary Refill Less than 3 Seconds -Dependent Rubor Yes -Lipodermatosclerosis Yes -Prior Foot Ulcer No -Charcot Joint No -Prior Amputation No -Thick Yes -Discolored No -Deformed No -Improper Length & Hygeine No Communication Assessment Preferred language Setswana Importer Or Exporter Required No Able to Read Yes Able to Write Yes Communication Tools None Caregiver Communication Skills No Impairment Impairment Right Hearing Abillity Normal Left Hearing Abillity Normal Visual Assistive Devices Glasses Teaching Assessment Preferences Verbal,Written, Demonstration Barriers to Learning None Readiness To Learn Excellent Willingness to Engage in Self Management High Activies Readiness to Engage in Self Management High Activities Anxiety Level Calm Cooperation Cooperative Perception Coherent Interest in Health Problem Asks Questions Education Importance Acknowledges Need Does Patient Smoke tobacco or other No substances Smoking Status Never smoker Is Patient Diabetic No Functional Assessment Recent Decline in Ability to Perform Ambulation, Bathing Assistive Device With Patient N/A Culture/Orthodox/Ski Maker Cultural/Orthodox Needs that may affect No Treatment Plan Would you allow our hospital talent management manager to No meet you for the purpose of spiritual/ emotional support? Ski Maker to contact place of yazdanism No Teaching: Wound Center *Welcome to the Wound Center -Person Taught Patient,Family -Teaching Method Discussion -Response to teaching Verbalize Understanding WC - Nurse 1 - General Ulcer Measurement Start: 03/04/25 14:20 Freq: Status: Active Protocol: Activity Type Activity Date Activity User E-sign Co-sign Detail Recorded Client Recorded Date Recorded By Document 03/04/25 14:20 CP [id number] 03/04/25 14:36 CP Document 03/11/25 13:16 DL [id number] 03/11/25 13:33 DL Document 03/18/25 14:11 DL [id number] 03/18/25 14:19 DL 03/04/25 03/11/25 03/18/25 14:20 13:16 14:11 Wound Center Nurse 1 1 right ant lower extrem -Current Size (cm) - Length 7 4.8 0 -Current Size (cm) - Width 7 5.3 0 -Current Size (cm) - Depth 0.1 0.1 0 -Total Square Cm 49 25.44 0 -Photo Taken Yes Yes -Epithelialization None Present -Tunneling No -Undermining/Tunneling No -Exudate Amt Small None Present None Present -Exudate Type Serous Serosanguineous -Wound Margin Flat & Intact Distinct, Outline Attached -Granulation Amt Large (67-100%) Large (67-100%) Large (67-100%) -Granulation Quality Red Alice Alice -Slough/Fibrin No -Necrosis Amt None Present (0 None Present (0 %) %) -Structure Exposed N/A N/A -Texture (Mari-wound Skin Appearance) No Abnormality Scarring Scarring -Moisture (Mari-wound Skin Appearance) No Abnormality No Abnormality No Abnormality -Color (Mari-wound Skin Appearance) No Abnormality No Abnormality No Abnormality -Temperature (Mari-wound Skin No Abnormality No Abnormality No Abnormality Appearance) (Pt Warm) (Pt Warm) (Pt Warm) -Tenderness on Palpation (Mari-wound No No Skin Appearance) -Ulcer Cleansing Rinsed/ Soap and Water Showered Irrigated with Saline -Foul Odor after Cleansing No No No -Anesthetic Used 4% Lidocaine 5% Lidocaine Solution Gel Right Calf (cm) 68 56.5 51.5 Right Ankle (cm) 39.5 36.4 31.8 Right Foot (cm) 58 Left Calf (cm) 71.5 36.5 57.2 Left Ankle (cm) 42 35.5 WC - Nurse 2 - General Ulcer CM Notes Start: 03/04/25 14:20 Freq: Status: Active Protocol: Activity Type Activity Date Activity User E-sign Co-sign Detail Recorded Client Recorded Date Recorded By Document 03/04/25 15:00 [id number] 03/04/25 15:15 Document 03/11/25 13:38 [facility] [id number] 03/11/25 13:42 [facility] Document 03/18/25 14:55 DS [id number] 03/18/25 14:55 DS Edit Result 03/18/25 14:55 DS (1) [id number] 03/18/25 14:57 DS (1) 1 right ant lower extrem - Wound/Ulcer Outcome => Healed- => Epithelialized 03/04/25 03/11/25 03/18/25 15:00 13:38 14:55 Wound Center Nurse 2 1 right ant lower extrem -Time 15:00 13:39 14:55 -Correct Patient Yes Yes -Correct Side, Site, Position Yes Yes Yes -Correct Procedure Yes -Procedure Performed Yes No No -Type of Procedure Debridement -Clinical Debridement Subcutaneous -Tissue Removed Subcutaneous -Post Debridement (cm) - Length 7.5 6.4 -Post Debridement (cm) - Width 7.2 6.3 -Post Debridement (cm) - Depth 0.1 0.1 -Total Square (Post) (cm) 54.00 40.32 -Area of Debridement (cm) - Length 7.5 6.4 -Area of Debridement (cm) - Width 7.2 6.3 -Total Square (Area) (cm) 54.00 40.32 -Tunneling No -Undermining/Tunneling No -Circular Undermining No -Wound/Ulcer Outcome Not Healed Not Healed Healed- Epithelialized -Ulcer Cleansing Rinsed/ Irrigated with Saline -Foul Odor after Cleansing No -Bioengineered Tissue No -Bleeding Controlled with Pressure NA -Treatment Response Procedure Tolerated Well -Offloading No -Debridement - Subq, 1st 20sq cm Yes -Debridement, SubQ, ea addt'l 20sq cm 2 or part thereof Pain Scale: 0-10 Numeric Is Patient Pain Free? Yes Yes Yes - Nurse 3 - General Ulcer D/C NN Start: 03/04/25 14:20 Freq: Status: Active Protocol: Activity Type Activity Date Activity User E-sign Co-sign Detail Recorded Client Recorded Date Recorded By Document 03/04/25 15:36 [facility] [id number] 03/04/25 15:38 [facility] Document 03/11/25 14:11 [id number] 03/11/25 14:12 Document 03/18/25 15:16 [facility] [id number] 03/18/25 15:17 [facility] 03/04/25 03/11/25 03/18/25 15:36 14:11 15:16 Wound Care Center Nurse 3 1 right ant lower extrem -Ulcer Cleansing Rinsed/ Irrigated with Saline -Foul Odor after Cleansing No -Primary Dressing Applied Aquacel Extra Aquacel Extra, Optilok 6.5x10 -Other Dressing drsg per dl road test examiner -Aquacel Extra 1 1 -Optilok 6.5x10 1 BLE -Multi-Layered Wrap Application Unna Boot - Multi-Layer Multi-Layer Bilateral Comp - Bilat ($ Comp - Bilat ($ ) ) -Other applied per dl wraps per dl road test examiner road test examiner -Unna- Bilat (Qty applied) 1 -Multi-Layer Compression Bilat (Qty 1 1 applied) Treatment Response Procedure Tolerated Well Pain Scale: 0-10 Numeric Is Patient Pain Free? Yes Yes Yes WC - Visit Discharge Discharge Condition Stable Stable Stable Ambulatory Status Wheelchair Ambulatory, Ambulatory Walker Transportation Private Auto Private Auto Private Auto Accompanied by gr daughter Medication Reconcilliation completed & No provided to patient/care provider Clinical Summary of Care Provided Yes Assessment/Plan Assessment/Plan (1) Ulcer of right holliday limited to breakdown of skin: CODE(S): L97.811 - Non-pressure chronic ulcer of other part of right lower leg limited to breakdown of skin (2) Lymphedema: CODE(S): I89.0 - Lymphedema, not elsewhere classified (3) Rheumatoid arthritis: CODE(S): M06.9 - Rheumatoid arthritis, unspecified (4) Lupus: (5) Sjogren syndrome: CODE(S): M35.00 - Sjogren syndrome, unspecified (6) Debility: CODE(S): R53.81 - Other malaise PLAN: Plan She has stage IV lymphedema which seems to be hereditary and by exam may also have a component of lipedema contributing; this has led to these recurrent fluid-filled blisters and subsequent ulcerations. Her edema is again significantly improved this week compared to last and her R holliday ulceration has healed. Although her edema has improved with compression wraps, significant BLE edema does remain along with papillomas, lipodermatosclerosis, and fibrosis consistent with stage IV lymphedema. I do believe she would benefit significantly from velcro compression garments and lymphedema pumps for improved long-term management of her edema. Will proceed with 3M wraps for compression this week. She is instructed to leave the wraps in place all week and to keep it clean and dry at all times. No signs/symptoms if infection on exam today. She will return to the office in 1 week, sooner as needed.
--- NOTE | 2025-03-18 16:04 | PCM.WC.PN ---
History of Present Illness Date of Service: 03/18/25 Chief Complaint: R holliday wound History of Wound: Karina Santana is a 79 y/o female who presents today for evaluation and management of a R holliday wound. She reports that this ulceration began as a large fluid-filled blister which then ruptured leaving behind this wound. When this first occurred in December, it was complicated by cellulitis for which she had a hospital admission 12/27-12/31 for IV antibiotic therapy and then was discharged on Augmentin for 14 days which she completed. Since being home, she has been caring for it primarily by wiping with shower wipes and bactine multiple times per day and then covering with gauze. She does have significant lymphedema which has been present over 10 years. She reports this is hereditary, her mother had it as well. She states she used to wrap her legs but got tired of doing so and admittedly has not been applying compression for a while. She has also been evaluated previously by Dr. Villa who placed venous stents in 2020, she reports this did not make any difference in her swelling; she is chronically anticoagulated with Eliquis reportedly due to the presence of these stents. She reports she saw him a few months ago and they were reportedly no concerns regarding the patency of her stents. She states her swelling has not acutely worsened at any point recently. He had directed her to order some compression wraps from [employer] however she could not find any in a size that would fit her. Her medical history is also significant for Lupus, RA, and Sjogren's syndrome for which she follows with rheumatology and takes methotrexate. She is not diabetic. She does not smoke. Her mobility is limited due to pain from her autoimmune conditions and her severe lymphedema. Subjective Subjective Karina did very well with the 3M wraps this week; she did remove them just prior to her appt so she could shower. Her R holliday wound has healed completely. She has noticed that her legs feel less heavy and she is able to ambulate a bit better. She is pleased with results so far. Objective Data Objective Data Vital Signs: Vital Signs Temp Pulse Resp BP 97.6 F L 100 20 H 176/78 H 03/18/25 14:11 03/18/25 14:11 03/18/25 14:11 03/18/25 14:11 Weight: 270 lb 3.969 oz Body Mass Index (BMI) 46.3 Charges/Coding Visit Charges Office Visits / Consults: 39211 OV L3 Est 20min Physical Exam Const alert, oriented x3 and no apparent distress General Appearance: cooperative HEENT normocephalic, head/scalp atraumatic, hearing grossly normal bilaterally, external ears normal and external nose normal Eyes General Eye: normal appearance of both eyes Neck General: normal visual inspection and trachea midline Lymph Lymphatic: lymphedema elephantiasis Resp normal respiratory effort and normal air movement Effort and Inspection: able to speak in complete sentences; Negative for labored, grunting or stridor Cardio regular rate and regular rhythm Extremity Extremity Narrative: Significant bilateral lower 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 Circumference measurements as follows (centimeters): Right Calf: 51.5 Right Ankle: 31.8 Left Calf: 57.2 Left Ankle: 35.5 Skin Wounds: wounds noted Wound Narrative: R holliday with superficial ulceration is completely epithelialized. Neuro CN's II-XII intact bilaterally, moves all extremities and no focal motor deficits Speech: speech normal Psych mental status grossly normal Appearance: grossly normal Attitude: calm and engaged Activity / Motor Behavior: appropriate eye contact Speech: normal speech Debridement Note Debridement Note No debridement was completed: No debridement was completed today Post-Debridement Measurements and Additional Note: Post-Debridement Measurements/Treatment - Nurse 1 - General Ulcer Assessment Start: 03/04/25 14:20 Freq: Status: Active Protocol: ALICIA.LOWWILNER Activity Type Activity Date Activity User E-sign Co-sign Detail Recorded Client Recorded Date Recorded By Document 03/04/25 14:20 CP [id number] 03/04/25 14:36 CP Edit Result 03/04/25 14:20 CP (1) [id number] 03/04/25 15:42 DL Document 03/11/25 13:16 DL [id number] 03/11/25 13:33 DL Document 03/18/25 14:11 DL [id number] 03/18/25 14:19 DL (1) Weight => 270 lb 3.969 oz Weight in Pounds => 270.2 lbs Body Mass Index (BMI) => 46.3 BMI Classification => Obese 03/04/25 03/11/25 03/18/25 14:20 13:16 14:11 - Today's Visit Information Type of service Initial Visit Follow-up Visit Follow-up Visit (Physician/VISUAL ASSOCIATE (Physician/VISUAL ASSOCIATE ) ) Arrival Mode Wheelchair Ambulatory, Ambulatory, Walker Walker Transfer Assistance Manual,None Manual Transfer Assist (Other) x1 x1 Patient Identification Verified (Name & Yes Yes Yes ) Patient Requires Transmission-Based No No No Precautions Height and Weight Height 5 ft 4 in Weight 270 lb 3.969 oz Weight in Pounds 270.2 lbs Body Mass Index (BMI) 46.3 46.3 46.3 BMI Classification Obese Obese Obese Vital Signs Temperature (97.8 F-99.1 F) 98.4 F 97.5 F L 97.6 F L Temperature Source Temporal Temporal Temporal Pulse Rate (60-100) 73 98 100 Pulse Location Monitor Monitor Monitor Respiratory Rate (12-18) 16 22 H 20 H Respiratory rate source Observation Observation Observation Blood Pressure (90/60-120/80) 157/76 H 162/81 H 176/78 H Blood Pressure Mean (mm Hg) 103 108 110 Source Monitor Monitor Monitor Position Sitting Blood Pressure Location Left Forearm History Since Last Visit- (Skip if this is Patient's initial visit) Have you changed medications since your No No last visit? Any new allergies or adverse reactions No No Had a fall/change in ADL's that may No No increase risk of falls Signs or symptoms of abuse and/or No No neglect since last visit Have you been in the hospital since your No No last visit? Has dressing in place as prescribed Yes Yes Has compression in place as prescribed Yes Yes Has offloadiing in place as prescribed N/A N/A Experienced any changes in pain level or No No management Pain Scale: 0-10 Numeric Is Patient Pain Free? No Yes Yes generalized -Description Aching -Duration (hours) Chronic -Pain Behavior No Change in Behavior -Alleviating Factors/Interventions Medication -Effectiveness of Alleviating Factor/ Moderately Intervention effective Lower Extremity Assessment/ Foot Assessment/ Toe Nail Assessment Right -Dorsalis Pedis Doppler Multiphasic -Hair Growth on Legs No -Hair Growth on Toes No -Temperature of Extremity Warm -Dependent Rubor Yes -Prior Foot Ulcer No -Charcot Joint No -Prior Amputation No -Thick No -Discolored Yes -Deformed No -Improper Length & Hygeine Yes Left -Dorsalis Pedis Palpable Yes -Dorsalis Pedis Doppler Multiphasic -Hair Growth on Legs No -Hair Growth on Toes No -Temperature of Extremity Warm -Capillary Refill Less than 3 Seconds -Dependent Rubor Yes -Lipodermatosclerosis Yes -Prior Foot Ulcer No -Charcot Joint No -Prior Amputation No -Thick Yes -Discolored No -Deformed No -Improper Length & Hygeine No Communication Assessment Preferred language [place] Nozzle And Sleeve Worker Required No Able to Read Yes Able to Write Yes Communication Tools None Caregiver Communication Skills No Impairment Impairment Right Hearing Abillity Normal Left Hearing Abillity Normal Visual Assistive Devices Glasses Teaching Assessment Preferences Verbal,Written, Demonstration Barriers to Learning None Readiness To Learn Excellent Willingness to Engage in Self Management High Activies Readiness to Engage in Self Management High Activities Anxiety Level Calm Cooperation Cooperative Perception Coherent Interest in Health Problem Asks Questions Education Importance Acknowledges Need Does Patient Smoke tobacco or other No substances Smoking Status Never smoker Is Patient Diabetic No Functional Assessment Recent Decline in Ability to Perform Ambulation, Bathing Assistive Device With Patient N/A Culture/Baptism/Plate Former Cultural/Baptism Needs that may affect No Treatment Plan Would you allow our hospital manager talent acquisition to No meet you for the purpose of spiritual/ emotional support? Plate Former to contact place of hinduism No Teaching: Wound Center *Welcome to the Wound Center -Person Taught Patient,Family -Teaching Method Discussion -Response to teaching Verbalize Understanding WC - Nurse 1 - General Ulcer Measurement Start: 03/04/25 14:20 Freq: Status: Active Protocol: Activity Type Activity Date Activity User E-sign Co-sign Detail Recorded Client Recorded Date Recorded By Document 03/04/25 14:20 CP [id number] 03/04/25 14:36 CP Document 03/11/25 13:16 DL [id number] 03/11/25 13:33 DL Document 03/18/25 14:11 DL [id number] 03/18/25 14:19 DL 03/04/25 03/11/25 03/18/25 14:20 13:16 14:11 Wound Center Nurse 1 1 right ant lower extrem -Current Size (cm) - Length 7 4.8 0 -Current Size (cm) - Width 7 5.3 0 -Current Size (cm) - Depth 0.1 0.1 0 -Total Square Cm 49 25.44 0 -Photo Taken Yes Yes -Epithelialization None Present -Tunneling No -Undermining/Tunneling No -Exudate Amt Small None Present None Present -Exudate Type Serous Serosanguineous -Wound Margin Flat & Intact Distinct, Outline Attached -Granulation Amt Large (67-100%) Large (67-100%) Large (67-100%) -Granulation Quality Red Rosman Rosman -Slough/Fibrin No -Necrosis Amt None Present (0 None Present (0 %) %) -Structure Exposed N/A N/A -Texture (Mari-wound Skin Appearance) No Abnormality Scarring Scarring -Moisture (Mari-wound Skin Appearance) No Abnormality No Abnormality No Abnormality -Color (Mari-wound Skin Appearance) No Abnormality No Abnormality No Abnormality -Temperature (Mari-wound Skin No Abnormality No Abnormality No Abnormality Appearance) (Pt Warm) (Pt Warm) (Pt Warm) -Tenderness on Palpation (Mari-wound No No Skin Appearance) -Ulcer Cleansing Rinsed/ Soap and Water Showered Irrigated with Saline -Foul Odor after Cleansing No No No -Anesthetic Used 4% Lidocaine 5% Lidocaine Solution Gel Right Calf (cm) 68 56.5 51.5 Right Ankle (cm) 39.5 36.4 31.8 Right Foot (cm) 58 Left Calf (cm) 71.5 36.5 57.2 Left Ankle (cm) 42 35.5 WC - Nurse 2 - General Ulcer CM Notes Start: 03/04/25 14:20 Freq: Status: Active Protocol: Activity Type Activity Date Activity User E-sign Co-sign Detail Recorded Client Recorded Date Recorded By Document 03/04/25 15:00 [id number] 03/04/25 15:15 Document 03/11/25 13:38 [facility] [id number] 03/11/25 13:42 [facility] Document 03/18/25 14:55 DS [id number] 03/18/25 14:55 DS Edit Result 03/18/25 14:55 DS (1) [id number] 03/18/25 14:57 DS (1) 1 right ant lower extrem - Wound/Ulcer Outcome => Healed- => Epithelialized 03/04/25 03/11/25 03/18/25 15:00 13:38 14:55 Wound Center Nurse 2 1 right ant lower extrem -Time 15:00 13:39 14:55 -Correct Patient Yes Yes -Correct Side, Site, Position Yes Yes Yes -Correct Procedure Yes -Procedure Performed Yes No No -Type of Procedure Debridement -Clinical Debridement Subcutaneous -Tissue Removed Subcutaneous -Post Debridement (cm) - Length 7.5 6.4 -Post Debridement (cm) - Width 7.2 6.3 -Post Debridement (cm) - Depth 0.1 0.1 -Total Square (Post) (cm) 54.00 40.32 -Area of Debridement (cm) - Length 7.5 6.4 -Area of Debridement (cm) - Width 7.2 6.3 -Total Square (Area) (cm) 54.00 40.32 -Tunneling No -Undermining/Tunneling No -Circular Undermining No -Wound/Ulcer Outcome Not Healed Not Healed Healed- Epithelialized -Ulcer Cleansing Rinsed/ Irrigated with Saline -Foul Odor after Cleansing No -Bioengineered Tissue No -Bleeding Controlled with Pressure NA -Treatment Response Procedure Tolerated Well -Offloading No -Debridement - Subq, 1st 20sq cm Yes -Debridement, SubQ, ea addt'l 20sq cm 2 or part thereof Pain Scale: 0-10 Numeric Is Patient Pain Free? Yes Yes Yes - Nurse 3 - General Ulcer D/C NN Start: 03/04/25 14:20 Freq: Status: Active Protocol: Activity Type Activity Date Activity User E-sign Co-sign Detail Recorded Client Recorded Date Recorded By Document 03/04/25 15:36 [facility] [id number] 03/04/25 15:38 [facility] Document 03/11/25 14:11 [id number] 03/11/25 14:12 Document 03/18/25 15:16 [facility] [id number] 03/18/25 15:17 [facility] 03/04/25 03/11/25 03/18/25 15:36 14:11 15:16 Wound Care Center Nurse 3 1 right ant lower extrem -Ulcer Cleansing Rinsed/ Irrigated with Saline -Foul Odor after Cleansing No -Primary Dressing Applied Aquacel Extra Aquacel Extra, Optilok 6.5x10 -Other Dressing drsg per dl [employer] -Aquacel Extra 1 1 -Optilok 6.5x10 1 BLE -Multi-Layered Wrap Application Unna Boot - Multi-Layer Multi-Layer Bilateral Comp - Bilat ($ Comp - Bilat ($ ) ) -Other applied per dl wraps per dl [employer] -Unna- Bilat (Qty applied) 1 -Multi-Layer Compression Bilat (Qty 1 1 applied) Treatment Response Procedure Tolerated Well Pain Scale: 0-10 Numeric Is Patient Pain Free? Yes Yes Yes WC - Visit Discharge Discharge Condition Stable Stable Stable Ambulatory Status Wheelchair Ambulatory, Ambulatory Walker Transportation Private Auto Private Auto Private Auto Accompanied by gr daughter Medication Reconcilliation completed & No provided to patient/care provider Clinical Summary of Care Provided Yes Assessment/Plan Assessment/Plan (1) Ulcer of right holliday limited to breakdown of skin: CODE(S): L97.811 - Non-pressure chronic ulcer of other part of right lower leg limited to breakdown of skin (2) Lymphedema: CODE(S): I89.0 - Lymphedema, not elsewhere classified (3) Rheumatoid arthritis: CODE(S): M06.9 - Rheumatoid arthritis, unspecified (4) Lupus: (5) Sjogren syndrome: CODE(S): M35.00 - Sjogren syndrome, unspecified (6) Debility: CODE(S): R53.81 - Other malaise PLAN: Plan She has stage IV lymphedema which seems to be hereditary and by exam may also have a component of lipedema contributing; this has led to these recurrent fluid-filled blisters and subsequent ulcerations. Her edema is again significantly improved this week compared to last and her R holliday ulceration has healed. Although her edema has improved with compression wraps, significant BLE edema does remain along with papillomas, lipodermatosclerosis, and fibrosis consistent with stage IV lymphedema. I do believe she would benefit significantly from velcro compression garments and lymphedema pumps for improved long-term management of her edema. Will proceed with 3M wraps for compression this week. She is instructed to leave the wraps in place all week and to keep it clean and dry at all times. No signs/symptoms if infection on exam today. She will return to the office in 1 week, sooner as needed.
[2025-03-25 14:00] VITALS: BP 170/80; PULSE 82; RESP 14; TEMP 36.4; BMI 46.3
--- NOTE | 2025-03-25 15:36 | PCM.WC.PN ---
History of Present Illness Date of Service: 03/25/25 Chief Complaint: R holliday wound History of Wound: Karina Santana is a 79 y/o female who presents today for evaluation and management of a R holliday wound. She reports that this ulceration began as a large fluid-filled blister which then ruptured leaving behind this wound. When this first occurred in December, it was complicated by cellulitis for which she had a hospital admission 12/27-12/31 for IV antibiotic therapy and then was discharged on Augmentin for 14 days which she completed. Since being home, she has been caring for it primarily by wiping with shower wipes and bactine multiple times per day and then covering with gauze. She does have significant lymphedema which has been present over 10 years. She reports this is hereditary, her mother had it as well. She states she used to wrap her legs but got tired of doing so and admittedly has not been applying compression for a while. She has also been evaluated previously by Dr. iVlla who placed venous stents in 2020, she reports this did not make any difference in her swelling; she is chronically anticoagulated with Eliquis reportedly due to the presence of these stents. She reports she saw him a few months ago and they were reportedly no concerns regarding the patency of her stents. She states her swelling has not acutely worsened at any point recently. He had directed her to order some compression wraps from [employer] however she could not find any in a size that would fit her. Her medical history is also significant for Lupus, RA, and Sjogren's syndrome for which she follows with rheumatology and takes methotrexate. She is not diabetic. She does not smoke. Her mobility is limited due to pain from her autoimmune conditions and her severe lymphedema. Subjective Subjective She continues to tolerate the compression wraps. She did notice that once removed, there are some areas on her shins that appear irritated from rubbing. No new wounds. Objective Data Objective Data Vital Signs: Vital Signs Temp Pulse Resp BP 97.5 F L 82 14 170/80 H 03/25/25 14:00 03/25/25 14:00 03/25/25 14:00 03/25/25 14:00 Weight: 270 lb 3.969 oz Body Mass Index (BMI) 46.3 Charges/Coding Visit Charges Office Visits / Consults: 18613 OV L3 Est 20min Physical Exam Const alert, oriented x3 and no apparent distress General Appearance: cooperative HEENT normocephalic, head/scalp atraumatic, hearing grossly normal bilaterally, external ears normal and external nose normal Eyes General Eye: normal appearance of both eyes Neck General: normal visual inspection and trachea midline Lymph Lymphatic: lymphedema elephantiasis Resp normal respiratory effort and normal air movement Effort and Inspection: able to speak in complete sentences; Negative for labored, grunting or stridor Cardio regular rate and regular rhythm Extremity Extremity Narrative: Significant bilateral lower 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 Circumference measurements as follows (centimeters): Right Calf: 55 Right Ankle: 36 Left Calf: 52 Left Ankle: 37 Skin Wounds: wounds noted Wound Narrative: R holliday with superficial ulceration is completely epithelialized. Neuro CN's II-XII intact bilaterally, moves all extremities and no focal motor deficits Speech: speech normal Psych mental status grossly normal Appearance: grossly normal Attitude: calm and engaged Activity / Motor Behavior: appropriate eye contact Speech: normal speech Debridement Note Debridement Note No debridement was completed: No debridement was completed today Post-Debridement Measurements and Additional Note: Post-Debridement Measurements/Treatment - Nurse 1 - General Ulcer Assessment Start: 03/04/25 14:20 Freq: Status: Active Protocol: VICK Activity Type Activity Date Activity User E-sign Co-sign Detail Recorded Client Recorded Date Recorded By Document 03/04/25 14:20 CP [id number] 03/04/25 14:36 CP Edit Result 03/04/25 14:20 CP (1) [id number] 03/04/25 15:42 DL Document 03/11/25 13:16 DL [id number] 03/11/25 13:33 DL Document 03/18/25 14:11 DL [id number] 03/18/25 14:19 DL Document 03/25/25 14:00 ML [id number] 03/25/25 14:14 ML (1) Weight => 270 lb 3.969 oz Weight in Pounds => 270.2 lbs Body Mass Index (BMI) => 46.3 BMI Classification => Obese 03/04/25 03/11/25 03/18/25 14:20 13:16 14:11 - Today's Visit Information Type of service Initial Visit Follow-up Visit Follow-up Visit (Physician/SPINDLE PLUMBER (Physician/SPINDLE PLUMBER ) ) Arrival Mode Wheelchair Ambulatory, Ambulatory, Walker Walker Transfer Assistance Manual,None Manual Transfer Assist (Other) x1 x1 Patient Identification Verified (Name & Yes Yes Yes ) Patient Requires Transmission-Based No No No Precautions Height and Weight Height 5 ft 4 in Weight 270 lb 3.969 oz Weight in Pounds 270.2 lbs Body Mass Index (BMI) 46.3 46.3 46.3 BMI Classification Obese Obese Obese Vital Signs Temperature (97.8 F-99.1 F) 98.4 F 97.5 F L 97.6 F L Temperature Source Temporal Temporal Temporal Pulse Rate (60-100) 73 98 100 Pulse Location Monitor Monitor Monitor Respiratory Rate (12-18) 16 22 H 20 H Respiratory rate source Observation Observation Observation Blood Pressure (90/60-120/80) 157/76 H 162/81 H 176/78 H Blood Pressure Mean (mm Hg) 103 108 110 Source Monitor Monitor Monitor Position Sitting Blood Pressure Location Left Forearm History Since Last Visit- (Skip if this is Patient's initial visit) Have you changed medications since your No No last visit? Any new allergies or adverse reactions No No Had a fall/change in ADL's that may No No increase risk of falls Signs or symptoms of abuse and/or No No neglect since last visit Have you been in the hospital since your No No last visit? Has dressing in place as prescribed Yes Yes Has compression in place as prescribed Yes Yes Has offloadiing in place as prescribed N/A N/A Experienced any changes in pain level or No No management Pain Scale: 0-10 Numeric Is Patient Pain Free? No Yes Yes generalized -Description Aching -Duration (hours) Chronic -Pain Behavior No Change in Behavior -Alleviating Factors/Interventions Medication -Effectiveness of Alleviating Factor/ Moderately Intervention effective Lower Extremity Assessment/ Foot Assessment/ Toe Nail Assessment Right -Dorsalis Pedis Doppler Multiphasic -Hair Growth on Legs No -Hair Growth on Toes No -Temperature of Extremity Warm -Dependent Rubor Yes -Prior Foot Ulcer No -Charcot Joint No -Prior Amputation No -Thick No -Discolored Yes -Deformed No -Improper Length & Hygeine Yes Left -Dorsalis Pedis Palpable Yes -Dorsalis Pedis Doppler Multiphasic -Hair Growth on Legs No -Hair Growth on Toes No -Temperature of Extremity Warm -Capillary Refill Less than 3 Seconds -Dependent Rubor Yes -Lipodermatosclerosis Yes -Prior Foot Ulcer No -Charcot Joint No -Prior Amputation No -Thick Yes -Discolored No -Deformed No -Improper Length & Hygeine No Communication Assessment Preferred language Grenadian Sock Liner Required No Able to Read Yes Able to Write Yes Communication Tools None Caregiver Communication Skills No Impairment Impairment Right Hearing Abillity Normal Left Hearing Abillity Normal Visual Assistive Devices Glasses Teaching Assessment Preferences Verbal,Written, Demonstration Barriers to Learning None Readiness To Learn Excellent Willingness to Engage in Self Management High Activies Readiness to Engage in Self Management High Activities Anxiety Level Calm Cooperation Cooperative Perception Coherent Interest in Health Problem Asks Questions Education Importance Acknowledges Need Does Patient Smoke tobacco or other No substances Smoking Status Never smoker Is Patient Diabetic No Functional Assessment Recent Decline in Ability to Perform Ambulation, Bathing Assistive Device With Patient N/A Culture/Confucianism/As400 Analyst Cultural/Confucianism Needs that may affect No Treatment Plan Would you allow our hospital seeing eye dog trainer to No meet you for the purpose of spiritual/ emotional support? As400 Analyst to contact place of sikh No Teaching: Wound Center *Welcome to the Wound Center -Person Taught Patient,Family -Teaching Method Discussion -Response to teaching Verbalize Understanding 03/25/25 14:00 WC - Today's Visit Information Type of service Follow-up Visit (Physician/SPINDLE PLUMBER ) Arrival Mode Ambulatory, Walker Transfer Assistance Transfer Assist (Other) Patient Identification Verified (Name & Yes ) Patient Requires Transmission-Based No Precautions Height and Weight Height Weight Weight in Pounds Body Mass Index (BMI) 46.3 BMI Classification Obese Vital Signs Temperature (97.8 F-99.1 F) 97.5 F L Temperature Source Temporal Pulse Rate (60-100) 82 Pulse Location Respiratory Rate (12-18) 14 Respiratory rate source Observation Blood Pressure (90/60-120/80) 170/80 H Blood Pressure Mean (mm Hg) 110 Source Monitor Position Sitting Blood Pressure Location Left Forearm History Since Last Visit- (Skip if this is Patient's initial visit) Have you changed medications since your No last visit? Any new allergies or adverse reactions No Had a fall/change in ADL's that may No increase risk of falls Signs or symptoms of abuse and/or No neglect since last visit Have you been in the hospital since your No last visit? Has dressing in place as prescribed Yes Has compression in place as prescribed N/A Has offloadiing in place as prescribed N/A Experienced any changes in pain level or No management Pain Scale: 0-10 Numeric Is Patient Pain Free? Yes generalized -Description -Duration (hours) -Pain Behavior -Alleviating Factors/Interventions -Effectiveness of Alleviating Factor/ Intervention Lower Extremity Assessment/ Foot Assessment/ Toe Nail Assessment Right -Dorsalis Pedis Doppler -Hair Growth on Legs -Hair Growth on Toes -Temperature of Extremity -Dependent Rubor -Prior Foot Ulcer -Charcot Joint -Prior Amputation -Thick -Discolored -Deformed -Improper Length & Hygeine Left -Dorsalis Pedis Palpable -Dorsalis Pedis Doppler -Hair Growth on Legs -Hair Growth on Toes -Temperature of Extremity -Capillary Refill -Dependent Rubor -Lipodermatosclerosis -Prior Foot Ulcer -Charcot Joint -Prior Amputation -Thick -Discolored -Deformed -Improper Length & Hygeine Communication Assessment Preferred tenter frame back tender Required Able to Read Able to Write Communication Tools Caregiver Communication Skills Impairment Right Hearing Abillity Left Hearing Abillity Visual Assistive Devices Teaching Assessment Preferences Barriers to Learning Readiness To Learn Willingness to Engage in Self Management Activies Readiness to Engage in Self Management Activities Anxiety Level Cooperation Perception Interest in Health Problem Education Importance Does Patient Smoke tobacco or other substances Smoking Status Is Patient Diabetic Functional Assessment Recent Decline in Ability to Perform Assistive Device With Patient Culture/Confucianism/As400 Analyst Cultural/Confucianism Needs that may affect Treatment Plan Would you allow our hospital seeing eye dog trainer to meet you for the purpose of spiritual/ emotional support? As400 Analyst to contact place of sikh Teaching: Wound Center *Welcome to the Wound Center -Person Taught -Teaching Method -Response to teaching WC - Nurse 1 - General Ulcer Measurement Start: 03/04/25 14:20 Freq: Status: Active Protocol: Activity Type Activity Date Activity User E-sign Co-sign Detail Recorded Client Recorded Date Recorded By Document 03/04/25 14:20 CP [id number] 03/04/25 14:36 CP Document 03/11/25 13:16 DL [id number] 03/11/25 13:33 DL Document 03/18/25 14:11 DL [id number] 03/18/25 14:19 DL Document 03/25/25 14:00 ML [id number] 03/25/25 14:14 ML 03/04/25 03/11/25 03/18/25 14:20 13:16 14:11 Wound Center Nurse 1 1 right ant lower extrem -Current Size (cm) - Length 7 4.8 0 -Current Size (cm) - Width 7 5.3 0 -Current Size (cm) - Depth 0.1 0.1 0 -Total Square Cm 49 25.44 0 -Photo Taken Yes Yes -Epithelialization None Present -Tunneling No -Undermining/Tunneling No -Exudate Amt Small None Present None Present -Exudate Type Serous Serosanguineous -Wound Margin Flat & Intact Distinct, Outline Attached -Granulation Amt Large (67-100%) Large (67-100%) Large (67-100%) -Granulation Quality Red Milmay Milmay -Slough/Fibrin No -Necrosis Amt None Present (0 None Present (0 %) %) -Structure Exposed N/A N/A -Texture (Mari-wound Skin Appearance) No Abnormality Scarring Scarring -Moisture (Mari-wound Skin Appearance) No Abnormality No Abnormality No Abnormality -Color (Mari-wound Skin Appearance) No Abnormality No Abnormality No Abnormality -Temperature (Mari-wound Skin No Abnormality No Abnormality No Abnormality Appearance) (Pt Warm) (Pt Warm) (Pt Warm) -Tenderness on Palpation (Mari-wound No No Skin Appearance) -Ulcer Cleansing Rinsed/ Soap and Water Showered Irrigated with Saline -Foul Odor after Cleansing No No No -Anesthetic Used 4% Lidocaine 5% Lidocaine Solution Gel Right Calf (cm) 68 56.5 51.5 Right Ankle (cm) 39.5 36.4 31.8 Right Foot (cm) 58 Left Calf (cm) 71.5 36.5 57.2 Left Ankle (cm) 42 35.5 03/25/25 14:00 Wound Center Nurse 1 1 right ant lower extrem -Current Size (cm) - Length -Current Size (cm) - Width -Current Size (cm) - Depth -Total Square Cm -Photo Taken -Epithelialization -Tunneling -Undermining/Tunneling -Exudate Amt -Exudate Type -Wound Margin -Granulation Amt -Granulation Quality -Slough/Fibrin -Necrosis Amt -Structure Exposed -Texture (Mari-wound Skin Appearance) -Moisture (Mari-wound Skin Appearance) -Color (Mari-wound Skin Appearance) -Temperature (Mari-wound Skin Appearance) -Tenderness on Palpation (Mari-wound Skin Appearance) -Ulcer Cleansing -Foul Odor after Cleansing -Anesthetic Used Right Calf (cm) 55 Right Ankle (cm) 36 Right Foot (cm) Left Calf (cm) 52 Left Ankle (cm) 37 - Nurse 2 - General Ulcer CM Notes Start: 03/04/25 14:20 Freq: Status: Active Protocol: Activity Type Activity Date Activity User E-sign Co-sign Detail Recorded Client Recorded Date Recorded By Document 03/04/25 15:00 GM [id number] 03/04/25 15:15 GM Document 03/11/25 13:38 BMF [id number] 03/11/25 13:42 BMF Document 03/18/25 14:55 DS [id number] 03/18/25 14:55 DS Edit Result 03/18/25 14:55 DS (1) [id number] 03/18/25 14:57 DS Document 03/25/25 14:23 GM [id number] 03/25/25 14:23 GM (1) 1 right ant lower extrem - Wound/Ulcer Outcome => Healed- => Epithelialized 03/04/25 03/11/25 03/18/25 15:00 13:38 14:55 Wound Center Nurse 2 1 right ant lower extrem -Time 15:00 13:39 14:55 -Correct Patient Yes Yes -Correct Side, Site, Position Yes Yes Yes -Correct Procedure Yes -Procedure Performed Yes No No -Type of Procedure Debridement -Clinical Debridement Subcutaneous -Tissue Removed Subcutaneous -Post Debridement (cm) - Length 7.5 6.4 -Post Debridement (cm) - Width 7.2 6.3 -Post Debridement (cm) - Depth 0.1 0.1 -Total Square (Post) (cm) 54.00 40.32 -Area of Debridement (cm) - Length 7.5 6.4 -Area of Debridement (cm) - Width 7.2 6.3 -Total Square (Area) (cm) 54.00 40.32 -Tunneling No -Undermining/Tunneling No -Circular Undermining No -Wound/Ulcer Outcome Not Healed Not Healed Healed- Epithelialized -Ulcer Cleansing Rinsed/ Irrigated with Saline -Foul Odor after Cleansing No -Bioengineered Tissue No -Bleeding Controlled with Pressure NA -Treatment Response Procedure Tolerated Well -Offloading No -Debridement - Subq, 1st 20sq cm Yes -Debridement, SubQ, ea addt'l 20sq cm 2 or part thereof Pain Scale: 0-10 Numeric Is Patient Pain Free? Yes Yes Yes 03/25/25 14:23 Wound Center Nurse 2 1 right ant lower extrem -Time 14:23 -Correct Patient Yes -Correct Side, Site, Position Yes -Correct Procedure No -Procedure Performed No -Type of Procedure -Clinical Debridement -Tissue Removed -Post Debridement (cm) - Length -Post Debridement (cm) - Width -Post Debridement (cm) - Depth -Total Square (Post) (cm) -Area of Debridement (cm) - Length -Area of Debridement (cm) - Width -Total Square (Area) (cm) -Tunneling -Undermining/Tunneling -Circular Undermining -Wound/Ulcer Outcome Healed- Epithelialized -Ulcer Cleansing -Foul Odor after Cleansing -Bioengineered Tissue -Bleeding Controlled with -Treatment Response -Offloading No -Debridement - Subq, 1st 20sq cm -Debridement, SubQ, ea addt'l 20sq cm or part thereof Pain Scale: 0-10 Numeric Is Patient Pain Free? Yes - Nurse 3 - General Ulcer D/C NN Start: 03/04/25 14:20 Freq: Status: Active Protocol: Activity Type Activity Date Activity User E-sign Co-sign Detail Recorded Client Recorded Date Recorded By Document 03/04/25 15:36 [facility] [id number] 03/04/25 15:38 [facility] Document 03/11/25 14:11 [id number] 03/11/25 14:12 Document 03/18/25 15:16 [facility] [id number] 03/18/25 15:17 [facility] Document 03/25/25 14:52 [id number] 03/25/25 14:53 03/04/25 03/11/25 03/18/25 15:36 14:11 15:16 Wound Care Center Nurse 3 1 right ant lower extrem -Ulcer Cleansing Rinsed/ Irrigated with Saline -Foul Odor after Cleansing No -Primary Dressing Applied Aquacel Extra Aquacel Extra, Optilok 6.5x10 -Other Dressing drsg per dl physicist cryogenics -Aquacel Extra 1 1 -Optilok 5x5 1/2 -Optilok 6.5x10 1 BLE -Multi-Layered Wrap Application Unna Boot - Multi-Layer Multi-Layer Bilateral Comp - Bilat ($ Comp - Bilat ($ ) ) -Other applied per dl wraps per dl physicist cryogenics physicist cryogenics -Unna- Bilat (Qty applied) 1 -Multi-Layer Compression Bilat (Qty 1 1 applied) Treatment Response Procedure Tolerated Well Pain Scale: 0-10 Numeric Is Patient Pain Free? Yes Yes Yes WC - Visit Discharge Discharge Condition Stable Stable Stable Ambulatory Status Wheelchair Ambulatory, Ambulatory Walker Transportation Private Auto Private Auto Private Auto Accompanied by gr daughter Medication Reconcilliation completed & No provided to patient/care provider Clinical Summary of Care Provided Yes 03/25/25 14:52 Wound Care Center Nurse 3 1 right ant lower extrem -Ulcer Cleansing -Foul Odor after Cleansing -Primary Dressing Applied Optilok 5x5 1/2 -Other Dressing -Aquacel Extra -Optilok 5x5 1/2 1 -Optilok 6.5x10 BLE -Multi-Layered Wrap Application Multi-Layer Comp - Bilat ($ ) -Other apply stockinette for added layer d/ t contact irritaction -Unna- Bilat (Qty applied) -Multi-Layer Compression Bilat (Qty 1 applied) Treatment Response Pain Scale: 0-10 Numeric Is Patient Pain Free? Yes WC - Visit Discharge Discharge Condition Stable Ambulatory Status Ambulatory, Walker Transportation Private Auto Accompanied by Medication Reconcilliation completed & No provided to patient/care provider Clinical Summary of Care Provided Yes Assessment/Plan Assessment/Plan (1) Lymphedema: CODE(S): I89.0 - Lymphedema, not elsewhere classified (2) Rheumatoid arthritis: CODE(S): M06.9 - Rheumatoid arthritis, unspecified (3) Lupus: (4) Sjogren syndrome: CODE(S): M35.00 - Sjogren syndrome, unspecified (5) Debility: CODE(S): R53.81 - Other malaise PLAN: Plan She has stage IV lymphedema which seems to be hereditary and by exam may also have a component of lipedema contributing; this has led to these recurrent fluid-filled blisters and subsequent ulcerations. Her edema continues to improve with compression. Although her edema has improved with compression wraps, significant BLE edema does remain along with papillomas, lipodermatosclerosis, and fibrosis consistent with stage IV lymphedema. I do believe she would benefit significantly from velcro compression garments and lymphedema pumps for improved long-term management of her edema. Will proceed with 3M wraps for compression this week. Will add super-absorber for additional padding to see if this reduces skin irritation. She is instructed to leave the wraps in place all week and to keep it clean and dry at all times. Will prescribe ammonium lactate lotion to address hyperkeratosis. No signs/symptoms if infection on exam today. She will return to the office in 1 week, sooner as needed.
--- NOTE | 2025-03-25 15:36 | PCM.WC.PN ---
History of Present Illness Date of Service: 03/25/25 Chief Complaint: R holliday wound History of Wound: Karina Santana is a 79 y/o female who presents today for evaluation and management of a R holliday wound. She reports that this ulceration began as a large fluid-filled blister which then ruptured leaving behind this wound. When this first occurred in December, it was complicated by cellulitis for which she had a hospital admission 12/27-12/31 for IV antibiotic therapy and then was discharged on Augmentin for 14 days which she completed. Since being home, she has been caring for it primarily by wiping with shower wipes and bactine multiple times per day and then covering with gauze. She does have significant lymphedema which has been present over 10 years. She reports this is hereditary, her mother had it as well. She states she used to wrap her legs but got tired of doing so and admittedly has not been applying compression for a while. She has also been evaluated previously by Dr. Villa who placed venous stents in 2020, she reports this did not make any difference in her swelling; she is chronically anticoagulated with Eliquis reportedly due to the presence of these stents. She reports she saw him a few months ago and they were reportedly no concerns regarding the patency of her stents. She states her swelling has not acutely worsened at any point recently. He had directed her to order some compression wraps from [employer] however she could not find any in a size that would fit her. Her medical history is also significant for Lupus, RA, and Sjogren's syndrome for which she follows with rheumatology and takes methotrexate. She is not diabetic. She does not smoke. Her mobility is limited due to pain from her autoimmune conditions and her severe lymphedema. Subjective Subjective She continues to tolerate the compression wraps. She did notice that once removed, there are some areas on her shins that appear irritated from rubbing. No new wounds. Objective Data Objective Data Vital Signs: Vital Signs Temp Pulse Resp BP 97.5 F L 82 14 170/80 H 03/25/25 14:00 03/25/25 14:00 03/25/25 14:00 03/25/25 14:00 Weight: 270 lb 3.969 oz Body Mass Index (BMI) 46.3 Charges/Coding Visit Charges Office Visits / Consults: 30977 OV L3 Est 20min Physical Exam Const alert, oriented x3 and no apparent distress General Appearance: cooperative HEENT normocephalic, head/scalp atraumatic, hearing grossly normal bilaterally, external ears normal and external nose normal Eyes General Eye: normal appearance of both eyes Neck General: normal visual inspection and trachea midline Lymph Lymphatic: lymphedema elephantiasis Resp normal respiratory effort and normal air movement Effort and Inspection: able to speak in complete sentences; Negative for labored, grunting or stridor Cardio regular rate and regular rhythm Extremity Extremity Narrative: Significant bilateral lower 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 Circumference measurements as follows (centimeters): Right Calf: 55 Right Ankle: 36 Left Calf: 52 Left Ankle: 37 Skin Wounds: wounds noted Wound Narrative: R holliday with superficial ulceration is completely epithelialized. Neuro CN's II-XII intact bilaterally, moves all extremities and no focal motor deficits Speech: speech normal Psych mental status grossly normal Appearance: grossly normal Attitude: calm and engaged Activity / Motor Behavior: appropriate eye contact Speech: normal speech Debridement Note Debridement Note No debridement was completed: No debridement was completed today Post-Debridement Measurements and Additional Note: Post-Debridement Measurements/Treatment - Nurse 1 - General Ulcer Assessment Start: 03/04/25 14:20 Freq: Status: Active Protocol: VICK Activity Type Activity Date Activity User E-sign Co-sign Detail Recorded Client Recorded Date Recorded By Document 03/04/25 14:20 CP [id number] 03/04/25 14:36 CP Edit Result 03/04/25 14:20 CP (1) [id number] 03/04/25 15:42 DL Document 03/11/25 13:16 DL [id number] 03/11/25 13:33 DL Document 03/18/25 14:11 DL [id number] 03/18/25 14:19 DL Document 03/25/25 14:00 ML [id number] 03/25/25 14:14 ML (1) Weight => 270 lb 3.969 oz Weight in Pounds => 270.2 lbs Body Mass Index (BMI) => 46.3 BMI Classification => Obese 03/04/25 03/11/25 03/18/25 14:20 13:16 14:11 - Today's Visit Information Type of service Initial Visit Follow-up Visit Follow-up Visit (Physician/VEHICLE PAINTER (Physician/VEHICLE PAINTER ) ) Arrival Mode Wheelchair Ambulatory, Ambulatory, Walker Walker Transfer Assistance Manual,None Manual Transfer Assist (Other) x1 x1 Patient Identification Verified (Name & Yes Yes Yes ) Patient Requires Transmission-Based No No No Precautions Height and Weight Height 5 ft 4 in Weight 270 lb 3.969 oz Weight in Pounds 270.2 lbs Body Mass Index (BMI) 46.3 46.3 46.3 BMI Classification Obese Obese Obese Vital Signs Temperature (97.8 F-99.1 F) 98.4 F 97.5 F L 97.6 F L Temperature Source Temporal Temporal Temporal Pulse Rate (60-100) 73 98 100 Pulse Location Monitor Monitor Monitor Respiratory Rate (12-18) 16 22 H 20 H Respiratory rate source Observation Observation Observation Blood Pressure (90/60-120/80) 157/76 H 162/81 H 176/78 H Blood Pressure Mean (mm Hg) 103 108 110 Source Monitor Monitor Monitor Position Sitting Blood Pressure Location Left Forearm History Since Last Visit- (Skip if this is Patient's initial visit) Have you changed medications since your No No last visit? Any new allergies or adverse reactions No No Had a fall/change in ADL's that may No No increase risk of falls Signs or symptoms of abuse and/or No No neglect since last visit Have you been in the hospital since your No No last visit? Has dressing in place as prescribed Yes Yes Has compression in place as prescribed Yes Yes Has offloadiing in place as prescribed N/A N/A Experienced any changes in pain level or No No management Pain Scale: 0-10 Numeric Is Patient Pain Free? No Yes Yes generalized -Description Aching -Duration (hours) Chronic -Pain Behavior No Change in Behavior -Alleviating Factors/Interventions Medication -Effectiveness of Alleviating Factor/ Moderately Intervention effective Lower Extremity Assessment/ Foot Assessment/ Toe Nail Assessment Right -Dorsalis Pedis Doppler Multiphasic -Hair Growth on Legs No -Hair Growth on Toes No -Temperature of Extremity Warm -Dependent Rubor Yes -Prior Foot Ulcer No -Charcot Joint No -Prior Amputation No -Thick No -Discolored Yes -Deformed No -Improper Length & Hygeine Yes Left -Dorsalis Pedis Palpable Yes -Dorsalis Pedis Doppler Multiphasic -Hair Growth on Legs No -Hair Growth on Toes No -Temperature of Extremity Warm -Capillary Refill Less than 3 Seconds -Dependent Rubor Yes -Lipodermatosclerosis Yes -Prior Foot Ulcer No -Charcot Joint No -Prior Amputation No -Thick Yes -Discolored No -Deformed No -Improper Length & Hygeine No Communication Assessment Preferred language Malagasy Director Instrumentation Required No Able to Read Yes Able to Write Yes Communication Tools None Caregiver Communication Skills No Impairment Impairment Right Hearing Abillity Normal Left Hearing Abillity Normal Visual Assistive Devices Glasses Teaching Assessment Preferences Verbal,Written, Demonstration Barriers to Learning None Readiness To Learn Excellent Willingness to Engage in Self Management High Activies Readiness to Engage in Self Management High Activities Anxiety Level Calm Cooperation Cooperative Perception Coherent Interest in Health Problem Asks Questions Education Importance Acknowledges Need Does Patient Smoke tobacco or other No substances Smoking Status Never smoker Is Patient Diabetic No Functional Assessment Recent Decline in Ability to Perform Ambulation, Bathing Assistive Device With Patient N/A Culture/Tenriism/Timber Surveyor Cultural/Tenriism Needs that may affect No Treatment Plan Would you allow our hospital cement finisher helper to No meet you for the purpose of spiritual/ emotional support? Timber Surveyor to contact place of shinto No Teaching: Wound Center *Welcome to the Wound Center -Person Taught Patient,Family -Teaching Method Discussion -Response to teaching Verbalize Understanding 03/25/25 14:00 WC - Today's Visit Information Type of service Follow-up Visit (Physician/VEHICLE PAINTER ) Arrival Mode Ambulatory, Walker Transfer Assistance Transfer Assist (Other) Patient Identification Verified (Name & Yes ) Patient Requires Transmission-Based No Precautions Height and Weight Height Weight Weight in Pounds Body Mass Index (BMI) 46.3 BMI Classification Obese Vital Signs Temperature (97.8 F-99.1 F) 97.5 F L Temperature Source Temporal Pulse Rate (60-100) 82 Pulse Location Respiratory Rate (12-18) 14 Respiratory rate source Observation Blood Pressure (90/60-120/80) 170/80 H Blood Pressure Mean (mm Hg) 110 Source Monitor Position Sitting Blood Pressure Location Left Forearm History Since Last Visit- (Skip if this is Patient's initial visit) Have you changed medications since your No last visit? Any new allergies or adverse reactions No Had a fall/change in ADL's that may No increase risk of falls Signs or symptoms of abuse and/or No neglect since last visit Have you been in the hospital since your No last visit? Has dressing in place as prescribed Yes Has compression in place as prescribed N/A Has offloadiing in place as prescribed N/A Experienced any changes in pain level or No management Pain Scale: 0-10 Numeric Is Patient Pain Free? Yes generalized -Description -Duration (hours) -Pain Behavior -Alleviating Factors/Interventions -Effectiveness of Alleviating Factor/ Intervention Lower Extremity Assessment/ Foot Assessment/ Toe Nail Assessment Right -Dorsalis Pedis Doppler -Hair Growth on Legs -Hair Growth on Toes -Temperature of Extremity -Dependent Rubor -Prior Foot Ulcer -Charcot Joint -Prior Amputation -Thick -Discolored -Deformed -Improper Length & Hygeine Left -Dorsalis Pedis Palpable -Dorsalis Pedis Doppler -Hair Growth on Legs -Hair Growth on Toes -Temperature of Extremity -Capillary Refill -Dependent Rubor -Lipodermatosclerosis -Prior Foot Ulcer -Charcot Joint -Prior Amputation -Thick -Discolored -Deformed -Improper Length & Hygeine Communication Assessment Preferred automotive artist Required Able to Read Able to Write Communication Tools Caregiver Communication Skills Impairment Right Hearing Abillity Left Hearing Abillity Visual Assistive Devices Teaching Assessment Preferences Barriers to Learning Readiness To Learn Willingness to Engage in Self Management Activies Readiness to Engage in Self Management Activities Anxiety Level Cooperation Perception Interest in Health Problem Education Importance Does Patient Smoke tobacco or other substances Smoking Status Is Patient Diabetic Functional Assessment Recent Decline in Ability to Perform Assistive Device With Patient Culture/Tenriism/Timber Surveyor Cultural/Tenriism Needs that may affect Treatment Plan Would you allow our hospital cement finisher helper to meet you for the purpose of spiritual/ emotional support? Timber Surveyor to contact place of shinto Teaching: Wound Center *Welcome to the Wound Center -Person Taught -Teaching Method -Response to teaching WC - Nurse 1 - General Ulcer Measurement Start: 03/04/25 14:20 Freq: Status: Active Protocol: Activity Type Activity Date Activity User E-sign Co-sign Detail Recorded Client Recorded Date Recorded By Document 03/04/25 14:20 CP [id number] 03/04/25 14:36 CP Document 03/11/25 13:16 DL [id number] 03/11/25 13:33 DL Document 03/18/25 14:11 DL [id number] 03/18/25 14:19 DL Document 03/25/25 14:00 ML [id number] 03/25/25 14:14 ML 03/04/25 03/11/25 03/18/25 14:20 13:16 14:11 Wound Center Nurse 1 1 right ant lower extrem -Current Size (cm) - Length 7 4.8 0 -Current Size (cm) - Width 7 5.3 0 -Current Size (cm) - Depth 0.1 0.1 0 -Total Square Cm 49 25.44 0 -Photo Taken Yes Yes -Epithelialization None Present -Tunneling No -Undermining/Tunneling No -Exudate Amt Small None Present None Present -Exudate Type Serous Serosanguineous -Wound Margin Flat & Intact Distinct, Outline Attached -Granulation Amt Large (67-100%) Large (67-100%) Large (67-100%) -Granulation Quality Red Damon Damon -Slough/Fibrin No -Necrosis Amt None Present (0 None Present (0 %) %) -Structure Exposed N/A N/A -Texture (Mari-wound Skin Appearance) No Abnormality Scarring Scarring -Moisture (Mari-wound Skin Appearance) No Abnormality No Abnormality No Abnormality -Color (Mari-wound Skin Appearance) No Abnormality No Abnormality No Abnormality -Temperature (Mari-wound Skin No Abnormality No Abnormality No Abnormality Appearance) (Pt Warm) (Pt Warm) (Pt Warm) -Tenderness on Palpation (Mari-wound No No Skin Appearance) -Ulcer Cleansing Rinsed/ Soap and Water Showered Irrigated with Saline -Foul Odor after Cleansing No No No -Anesthetic Used 4% Lidocaine 5% Lidocaine Solution Gel Right Calf (cm) 68 56.5 51.5 Right Ankle (cm) 39.5 36.4 31.8 Right Foot (cm) 58 Left Calf (cm) 71.5 36.5 57.2 Left Ankle (cm) 42 35.5 03/25/25 14:00 Wound Center Nurse 1 1 right ant lower extrem -Current Size (cm) - Length -Current Size (cm) - Width -Current Size (cm) - Depth -Total Square Cm -Photo Taken -Epithelialization -Tunneling -Undermining/Tunneling -Exudate Amt -Exudate Type -Wound Margin -Granulation Amt -Granulation Quality -Slough/Fibrin -Necrosis Amt -Structure Exposed -Texture (Mari-wound Skin Appearance) -Moisture (Mari-wound Skin Appearance) -Color (Mari-wound Skin Appearance) -Temperature (Mari-wound Skin Appearance) -Tenderness on Palpation (Mari-wound Skin Appearance) -Ulcer Cleansing -Foul Odor after Cleansing -Anesthetic Used Right Calf (cm) 55 Right Ankle (cm) 36 Right Foot (cm) Left Calf (cm) 52 Left Ankle (cm) 37 - Nurse 2 - General Ulcer CM Notes Start: 03/04/25 14:20 Freq: Status: Active Protocol: Activity Type Activity Date Activity User E-sign Co-sign Detail Recorded Client Recorded Date Recorded By Document 03/04/25 15:00 GM [id number] 03/04/25 15:15 GM Document 03/11/25 13:38 BMF [id number] 03/11/25 13:42 BMF Document 03/18/25 14:55 DS [id number] 03/18/25 14:55 DS Edit Result 03/18/25 14:55 DS (1) [id number] 03/18/25 14:57 DS Document 03/25/25 14:23 GM [id number] 03/25/25 14:23 GM (1) 1 right ant lower extrem - Wound/Ulcer Outcome => Healed- => Epithelialized 03/04/25 03/11/25 03/18/25 15:00 13:38 14:55 Wound Center Nurse 2 1 right ant lower extrem -Time 15:00 13:39 14:55 -Correct Patient Yes Yes -Correct Side, Site, Position Yes Yes Yes -Correct Procedure Yes -Procedure Performed Yes No No -Type of Procedure Debridement -Clinical Debridement Subcutaneous -Tissue Removed Subcutaneous -Post Debridement (cm) - Length 7.5 6.4 -Post Debridement (cm) - Width 7.2 6.3 -Post Debridement (cm) - Depth 0.1 0.1 -Total Square (Post) (cm) 54.00 40.32 -Area of Debridement (cm) - Length 7.5 6.4 -Area of Debridement (cm) - Width 7.2 6.3 -Total Square (Area) (cm) 54.00 40.32 -Tunneling No -Undermining/Tunneling No -Circular Undermining No -Wound/Ulcer Outcome Not Healed Not Healed Healed- Epithelialized -Ulcer Cleansing Rinsed/ Irrigated with Saline -Foul Odor after Cleansing No -Bioengineered Tissue No -Bleeding Controlled with Pressure NA -Treatment Response Procedure Tolerated Well -Offloading No -Debridement - Subq, 1st 20sq cm Yes -Debridement, SubQ, ea addt'l 20sq cm 2 or part thereof Pain Scale: 0-10 Numeric Is Patient Pain Free? Yes Yes Yes 03/25/25 14:23 Wound Center Nurse 2 1 right ant lower extrem -Time 14:23 -Correct Patient Yes -Correct Side, Site, Position Yes -Correct Procedure No -Procedure Performed No -Type of Procedure -Clinical Debridement -Tissue Removed -Post Debridement (cm) - Length -Post Debridement (cm) - Width -Post Debridement (cm) - Depth -Total Square (Post) (cm) -Area of Debridement (cm) - Length -Area of Debridement (cm) - Width -Total Square (Area) (cm) -Tunneling -Undermining/Tunneling -Circular Undermining -Wound/Ulcer Outcome Healed- Epithelialized -Ulcer Cleansing -Foul Odor after Cleansing -Bioengineered Tissue -Bleeding Controlled with -Treatment Response -Offloading No -Debridement - Subq, 1st 20sq cm -Debridement, SubQ, ea addt'l 20sq cm or part thereof Pain Scale: 0-10 Numeric Is Patient Pain Free? Yes - Nurse 3 - General Ulcer D/C NN Start: 03/04/25 14:20 Freq: Status: Active Protocol: Activity Type Activity Date Activity User E-sign Co-sign Detail Recorded Client Recorded Date Recorded By Document 03/04/25 15:36 [facility] [id number] 03/04/25 15:38 [facility] Document 03/11/25 14:11 [id number] 03/11/25 14:12 Document 03/18/25 15:16 [facility] [id number] 03/18/25 15:17 [facility] Document 03/25/25 14:52 [id number] 03/25/25 14:53 03/04/25 03/11/25 03/18/25 15:36 14:11 15:16 Wound Care Center Nurse 3 1 right ant lower extrem -Ulcer Cleansing Rinsed/ Irrigated with Saline -Foul Odor after Cleansing No -Primary Dressing Applied Aquacel Extra Aquacel Extra, Optilok 6.5x10 -Other Dressing drsg per dl concert manager -Aquacel Extra 1 1 -Optilok 5x5 1/2 -Optilok 6.5x10 1 BLE -Multi-Layered Wrap Application Unna Boot - Multi-Layer Multi-Layer Bilateral Comp - Bilat ($ Comp - Bilat ($ ) ) -Other applied per dl wraps per dl concert manager concert manager -Unna- Bilat (Qty applied) 1 -Multi-Layer Compression Bilat (Qty 1 1 applied) Treatment Response Procedure Tolerated Well Pain Scale: 0-10 Numeric Is Patient Pain Free? Yes Yes Yes WC - Visit Discharge Discharge Condition Stable Stable Stable Ambulatory Status Wheelchair Ambulatory, Ambulatory Walker Transportation Private Auto Private Auto Private Auto Accompanied by gr daughter Medication Reconcilliation completed & No provided to patient/care provider Clinical Summary of Care Provided Yes 03/25/25 14:52 Wound Care Center Nurse 3 1 right ant lower extrem -Ulcer Cleansing -Foul Odor after Cleansing -Primary Dressing Applied Optilok 5x5 1/2 -Other Dressing -Aquacel Extra -Optilok 5x5 1/2 1 -Optilok 6.5x10 BLE -Multi-Layered Wrap Application Multi-Layer Comp - Bilat ($ ) -Other apply stockinette for added layer d/ t contact irritaction -Unna- Bilat (Qty applied) -Multi-Layer Compression Bilat (Qty 1 applied) Treatment Response Pain Scale: 0-10 Numeric Is Patient Pain Free? Yes WC - Visit Discharge Discharge Condition Stable Ambulatory Status Ambulatory, Walker Transportation Private Auto Accompanied by Medication Reconcilliation completed & No provided to patient/care provider Clinical Summary of Care Provided Yes Assessment/Plan Assessment/Plan (1) Lymphedema: CODE(S): I89.0 - Lymphedema, not elsewhere classified (2) Rheumatoid arthritis: CODE(S): M06.9 - Rheumatoid arthritis, unspecified (3) Lupus: (4) Sjogren syndrome: CODE(S): M35.00 - Sjogren syndrome, unspecified (5) Debility: CODE(S): R53.81 - Other malaise PLAN: Plan She has stage IV lymphedema which seems to be hereditary and by exam may also have a component of lipedema contributing; this has led to these recurrent fluid-filled blisters and subsequent ulcerations. Her edema continues to improve with compression. Although her edema has improved with compression wraps, significant BLE edema does remain along with papillomas, lipodermatosclerosis, and fibrosis consistent with stage IV lymphedema. I do believe she would benefit significantly from velcro compression garments and lymphedema pumps for improved long-term management of her edema. Will proceed with 3M wraps for compression this week. Will add super-absorber for additional padding to see if this reduces skin irritation. She is instructed to leave the wraps in place all week and to keep it clean and dry at all times. Will prescribe ammonium lactate lotion to address hyperkeratosis. No signs/symptoms if infection on exam today. She will return to the office in 1 week, sooner as needed.
== END 2025-03-25 23:59 | disposition home or self-care (01) ==
LOC: WC 14:15
PROVIDERS: Referring Provider Nurse Practitioner Family; Visit Provider Physician Assistant
DX: L97.811 Non-pressure chronic ulcer of other part of right lower leg limited to breakdown of skin (principal); M06.9 Rheumatoid arthritis, unspecified; M32.9 Systemic lupus erythematosus, unspecified; M35.00 Sjogren syndrome, unspecified; Z79.01 Long term (current) use of anticoagulants; R53.81 Other malaise; I89.0 Lymphedema, not elsewhere classified
CPT/HCPCS: 11042; 11045; 29580; 29581; 99213; G0463

== ENCOUNTER 2025-04-22 14:30 | Outpatient (RCR) | payer MEDICARE, SELFPAY ==
[2025-04-01 14:32] VITALS: BP 166/77; PULSE 94; RESP 22; TEMP 36.4
--- NOTE | 2025-04-01 17:50 | PCM.WC.PN ---
History of Present Illness Date of Service: 04/01/25 Chief Complaint: R holliday wound History of Wound: Karina Santana is a 79 y/o female who presents today for evaluation and management of a R holliday wound. She reports that this ulceration began as a large fluid-filled blister which then ruptured leaving behind this wound. When this first occurred in December, it was complicated by cellulitis for which she had a hospital admission 12/27-12/31 for IV antibiotic therapy and then was discharged on Augmentin for 14 days which she completed. Since being home, she has been caring for it primarily by wiping with shower wipes and bactine multiple times per day and then covering with gauze. She does have significant lymphedema which has been present over 10 years. She reports this is hereditary, her mother had it as well. She states she used to wrap her legs but got tired of doing so and admittedly has not been applying compression for a while. She has also been evaluated previously by Dr. Villa who placed venous stents in 2020, she reports this did not make any difference in her swelling; she is chronically anticoagulated with Eliquis reportedly due to the presence of these stents. She reports she saw him a few months ago and they were reportedly no concerns regarding the patency of her stents. She states her swelling has not acutely worsened at any point recently. He had directed her to order some compression wraps from [employer] however she could not find any in a size that would fit her. Her medical history is also significant for Lupus, RA, and Sjogren's syndrome for which she follows with rheumatology and takes methotrexate. She is not diabetic. She does not smoke. Her mobility is limited due to pain from her autoimmune conditions and her severe lymphedema. Subjective Subjective She has continued to notice improvement in her overall mobility with compression. Her R leg wound remains healed, no new wounds. She has no acute concerns today. Objective Data Objective Data Vital Signs: Vital Signs Temp Pulse Resp BP 97.6 F L 94 22 H 166/77 H 04/01/25 14:32 04/01/25 14:32 04/01/25 14:32 04/01/25 14:32 Charges/Coding Visit Charges Office Visits / Consults: [id number] OV L3 Est 20min Physical Exam Const alert, oriented x3 and no apparent distress General Appearance: cooperative HEENT normocephalic, head/scalp atraumatic, hearing grossly normal bilaterally, external ears normal and external nose normal Eyes General Eye: normal appearance of both eyes Neck General: normal visual inspection and trachea midline Lymph Lymphatic: lymphedema elephantiasis Resp normal respiratory effort and normal air movement Effort and Inspection: able to speak in complete sentences; Negative for labored, grunting or stridor Cardio regular rate and regular rhythm Extremity Extremity Narrative: Significant bilateral lower 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 Circumference measurements as follows (centimeters): Right Calf: 49 Right Ankle: 35 Left Calf: 55 Left Ankle: 35 Skin Wounds: wounds noted Wound Narrative: R holliday with superficial ulceration is completely epithelialized. Neuro CN's II-XII intact bilaterally, moves all extremities and no focal motor deficits Speech: speech normal Psych mental status grossly normal Appearance: grossly normal Attitude: calm and engaged Activity / Motor Behavior: appropriate eye contact Speech: normal speech Debridement Note Debridement Note Post-Debridement Measurements and Additional Note: Post-Debridement Measurements/Treatment - Nurse 1 - General Ulcer Assessment Start: 04/01/25 14:29 Freq: Status: Active Protocol: VICK Activity Type Activity Date Activity User E-sign Co-sign Detail Recorded Client Recorded Date Recorded By Document 04/01/25 14:32 DL [id number] 04/01/25 14:35 DL 04/01/25 14:32 - Today's Visit Information Type of service Follow-up Visit (Physician/BUNG DROPPER ) Arrival Mode Ambulatory, Walker Transfer Assistance Manual Transfer Assist (Other) x1 Patient Identification Verified (Name & Yes ) Patient Requires Transmission-Based No Precautions Vital Signs Temperature (97.8 F-99.1 F) 97.6 F L Temperature Source Temporal Pulse Rate (60-100) 94 Pulse Location Monitor Respiratory Rate (12-18) 22 H Respiratory rate source Observation Blood Pressure (90/60-120/80) 166/77 H Blood Pressure Mean (mm Hg) 106 Source Monitor History Since Last Visit- (Skip if this is Patient's initial visit) Have you changed medications since your No last visit? Any new allergies or adverse reactions No Had a fall/change in ADL's that may No increase risk of falls Signs or symptoms of abuse and/or No neglect since last visit Have you been in the hospital since your No last visit? Has dressing in place as prescribed No Has compression in place as prescribed No Has offloadiing in place as prescribed N/A Experienced any changes in pain level or No management Pain Scale: 0-10 Numeric Is Patient Pain Free? Yes - Nurse 1 - General Ulcer Measurement Start: 04/01/25 14:29 Freq: Status: Active Protocol: Activity Type Activity Date Activity User E-sign Co-sign Detail Recorded Client Recorded Date Recorded By Document 04/01/25 14:32 DL [id number] 04/01/25 14:35 DL 04/01/25 14:32 Wound Center Nurse 1 Right Calf (cm) 49 Right Ankle (cm) 35 Left Calf (cm) 55 Left Ankle (cm) 35.2 - Nurse 2 - General Ulcer CM Notes Start: 04/01/25 14:29 Freq: Status: Active Protocol: Activity Type Activity Date Activity User E-sign Co-sign Detail Recorded Client Recorded Date Recorded By Document 04/01/25 14:51 GM [id number] 04/01/25 14:51 GM 04/01/25 14:51 Pain Scale: 0-10 Numeric Is Patient Pain Free? Yes - Nurse 3 - General Ulcer D/C NN Start: 04/01/25 14:29 Freq: Status: Active Protocol: Activity Type Activity Date Activity User E-sign Co-sign Detail Recorded Client Recorded Date Recorded By Document 04/01/25 15:11 DL [id number] 04/01/25 15:12 DL 04/01/25 15:11 Wound Care Center Nurse 3 BLE -Lotion applied to leg before Yes compression wrap -Multi-Layered Wrap Application Multi-Layer Comp - Bilat ($ ) -Multi-Layer Compression Bilat (Qty 2 applied) Pain Scale: 0-10 Numeric Is Patient Pain Free? Yes - Visit Discharge Discharge Condition Stable Ambulatory Status Ambulatory, Walker Transportation Private Auto Accompanied by family Assessment/Plan Assessment/Plan (1) Lymphedema: CODE(S): I89.0 - Lymphedema, not elsewhere classified (2) Rheumatoid arthritis: CODE(S): M06.9 - Rheumatoid arthritis, unspecified (3) Lupus: (4) Sjogren syndrome: CODE(S): M35.00 - Sjogren syndrome, unspecified (5) Debility: CODE(S): R53.81 - Other malaise PLAN: Plan She has stage IV lymphedema which seems to be hereditary and by exam may also have a component of lipedema contributing; this has led to these recurrent fluid-filled blisters and subsequent ulcerations. Her edema continues to improve with compression. Although her edema has improved with compression wraps, significant BLE edema does remain along with papillomas, lipodermatosclerosis, and fibrosis consistent with stage IV lymphedema. I do believe she would benefit significantly from velcro compression garments and lymphedema pumps for improved long-term management of her edema. I did submit order to [facility] last week. Will continue to try to reduce edema prior to measuring for and ordering velcro compression garments. Will proceed with 3M wraps for compression again this week. Will add super-absorber for additional padding to see if this reduces skin irritation. She is instructed to leave the wraps in place all week and to keep it clean and dry at all times. Apply ammonium lactate lotion between wrap changes, she will need to bring this with her to the wound center or apply prior to coming after she removes the wraps and showers at home. No signs/symptoms if infection on exam today. She will return to the office in 1 week, sooner as needed.
[2025-04-08 15:01] VITALS: BP 140/71; PULSE 92; RESP 18; TEMP 36.9
--- NOTE | 2025-04-08 15:27 | PN.PCM_ITS ---
History of Present Illness Date of Service: 04/08/25 Chief Complaint: R holliday wound History of Wound: Karina Santana is a 79 y/o female who presents today for evaluation and management of a R holliday wound. She reports that this ulceration began as a large fluid-filled blister which then ruptured leaving behind this wound. When this first occurred in December, it was complicated by cellulitis for which she had a hospital admission 12/27-12/31 for IV antibiotic therapy and then was discharged on Augmentin for 14 days which she completed. Since being home, she has been caring for it primarily by wiping with shower wipes and bactine multiple times per day and then covering with gauze. She does have significant lymphedema which has been present over 10 years. She reports this is hereditary, her mother had it as well. She states she used to wrap her legs but got tired of doing so and admittedly has not been applying compression for a while. She has also been evaluated previously by Dr. Villa who placed venous stents in 2020, she reports this did not make any difference in her swelling; she is chronically anticoagulated with Eliquis reportedly due to the presence of these stents. She reports she saw him a few months ago and they were reportedly no concerns regarding the patency of her stents. She states her swelling has not acutely worsened at any point recently. He had directed her to order some compression wraps from [employer] however she could not find any in a size that would fit her. Her medical history is also significant for Lupus, RA, and Sjogren's syndrome for which she follows with rheumatology and takes methotrexate. She is not diabetic. She does not smoke. Her mobility is limited due to pain from her autoimmune conditions and her severe lymphedema. Subjective Subjective She has been doing well this last week other than she has a cold. No new lower extremity concerns. Objective Data Objective Data Vital Signs: Vital Signs Temp Pulse Resp BP O2 Del Method 98.4 F 92 18 140/71 H Room Air 04/08/25 15:01 04/08/25 15:01 04/08/25 15:01 04/08/25 15:01 04/08/25 15:01 Oxygen Delivery Method Room Air Charges/Coding Visit Charges Office Visits / Consults: [id number] OV L3 Est 20min Physical Exam Const alert, oriented x3 and no apparent distress General Appearance: cooperative HEENT normocephalic, head/scalp atraumatic, hearing grossly normal bilaterally, external ears normal and external nose normal Eyes General Eye: normal appearance of both eyes Neck General: normal visual inspection and trachea midline Lymph Lymphatic: lymphedema elephantiasis Resp normal respiratory effort and normal air movement Effort and Inspection: able to speak in complete sentences; Negative for labored, grunting or stridor Cardio regular rate and regular rhythm Extremity Extremity Narrative: Significant bilateral lower 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 Circumference measurements as follows (centimeters): Right Calf: 51 Right Ankle: 34 Left Calf: 52.5 Left Ankle: 34.5 Skin Wounds: wounds noted Wound Narrative: R holliday with superficial ulceration is completely epithelialized. Neuro CN's II-XII intact bilaterally, moves all extremities and no focal motor deficits Speech: speech normal Psych mental status grossly normal Appearance: grossly normal Attitude: calm and engaged Activity / Motor Behavior: appropriate eye contact Speech: normal speech Debridement Note Debridement Note No debridement was completed: No debridement was completed today Post-Debridement Measurements and Additional Note: Post-Debridement Measurements/Treatment - Nurse 1 - General Ulcer Assessment Start: 04/01/25 14:29 Freq: Status: Active Protocol: WC.LOWCAMMYT Activity Type Activity Date Activity User E-sign Co-sign Detail Recorded Client Recorded Date Recorded By Document 04/01/25 14:32 DL [id number] 04/01/25 14:35 DL Document 04/08/25 15:01 KW [id number] 04/08/25 15:02 KW 04/01/25 04/08/25 14:32 15:01 - Today's Visit Information Type of service Follow-up Visit Follow-up Visit (Physician/VACUUM COOKER OPERATOR (Physician/VACUUM COOKER OPERATOR ) ) Arrival Mode Ambulatory, Ambulatory, Walker Walker Transfer Assistance Manual Transfer Assist (Other) x1 Patient Identification Verified (Name & Yes Yes ) Patient Requires Transmission-Based No Precautions Vital Signs Temperature (97.8 F-99.1 F) 97.6 F L 98.4 F Temperature Source Temporal Temporal Pulse Rate (60-100) 94 92 Pulse Location Monitor Monitor Respiratory Rate (12-18) 22 H 18 Respiratory rate source Observation Observation Oxygen Delivery Method Room Air Blood Pressure (90/60-120/80) 166/77 H 140/71 H Blood Pressure Mean (mm Hg) 106 94 Source Monitor Monitor Position Semi-Fowlers Blood Pressure Location Right Forearm History Since Last Visit- (Skip if this is Patient's initial visit) Have you changed medications since your No No last visit? Any new allergies or adverse reactions No No Had a fall/change in ADL's that may No No increase risk of falls Signs or symptoms of abuse and/or No No neglect since last visit Have you been in the hospital since your No No last visit? Has dressing in place as prescribed No Has compression in place as prescribed No No Has offloadiing in place as prescribed N/A N/A Experienced any changes in pain level or No management Left Footwear Regular Shoe Right Footwear Regular Shoe Pain Scale: 0-10 Numeric Is Patient Pain Free? Yes Yes - Nurse 1 - General Ulcer Measurement Start: 04/01/25 14:29 Freq: Status: Active Protocol: Activity Type Activity Date Activity User E-sign Co-sign Detail Recorded Client Recorded Date Recorded By Document 04/01/25 14:32 DL [id number] 04/01/25 14:35 DL Document 04/08/25 15:01 KW [id number] 04/08/25 15:02 KW 04/01/25 04/08/25 14:32 15:01 Wound Center Nurse 1 Right Calf (cm) 49 51 Right Ankle (cm) 35 34 Left Calf (cm) 55 52.5 Left Ankle (cm) 35.2 34.5 - Nurse 2 - General Ulcer CM Notes Start: 04/01/25 14:29 Freq: Status: Active Protocol: Activity Type Activity Date Activity User E-sign Co-sign Detail Recorded Client Recorded Date Recorded By Document 04/01/25 14:51 [id number] 04/01/25 14:51 Document 04/08/25 15:06 [id number] 04/08/25 15:06 04/01/25 04/08/25 14:51 15:06 Pain Scale: 0-10 Numeric Is Patient Pain Free? Yes Yes - Nurse 3 - General Ulcer D/C NN Start: 04/01/25 14:29 Freq: Status: Active Protocol: Activity Type Activity Date Activity User E-sign Co-sign Detail Recorded Client Recorded Date Recorded By Document 04/01/25 15:11 DL [id number] 04/01/25 15:12 DL 04/01/25 15:11 Wound Care Center Nurse 3 BLE -Lotion applied to leg before Yes compression wrap -Multi-Layered Wrap Application Multi-Layer Comp - Bilat ($ ) -Multi-Layer Compression Bilat (Qty 2 applied) Pain Scale: 0-10 Numeric Is Patient Pain Free? Yes WC - Visit Discharge Discharge Condition Stable Ambulatory Status Ambulatory, Walker Transportation Private Auto Accompanied by family Assessment/Plan Assessment/Plan (1) Lymphedema: CODE(S): I89.0 - Lymphedema, not elsewhere classified (2) Rheumatoid arthritis: CODE(S): M06.9 - Rheumatoid arthritis, unspecified (3) Lupus: (4) Sjogren syndrome: CODE(S): M35.00 - Sjogren syndrome, unspecified (5) Debility: CODE(S): R53.81 - Other malaise PLAN: Plan She has stage IV lymphedema which seems to be hereditary and by exam may also have a component of lipedema contributing; this has led to these recurrent fluid-filled blisters and subsequent ulcerations. Her edema continues to improve with compression. Although her edema has improved with compression wraps, significant BLE edema does remain along with papillomas, lipodermatosclerosis, and fibrosis consistent with stage IV lymphedema. I do believe she would benefit significantly from velcro compression garments and lymphedema pumps for improved long-term management of her edema. Order has been submitted to [facility] for lymphedema pumps. We will submit order this week as well for farrow wraps. Will proceed with 3M wraps for compression again this week. Will continue add super-absorber for additional padding as this did seem to reduce skin irritation last week. She is instructed to leave the wraps in place all week and to keep it clean and dry at all times. Apply ammonium lactate lotion between wrap changes, she will need to bring this with her to the wound center or apply prior to coming after she removes the wraps and showers at home. No signs/symptoms if infection on exam today. She will return to the office in 1 week, sooner as needed.
--- NOTE | 2025-04-09 09:29 | WC ---
[id number] 04/08/25
[2025-04-15 15:00] VITALS: BP 178/102; PULSE 100; RESP 22; TEMP 36.2
--- NOTE | 2025-04-15 17:10 | PN.PCM_ITS ---
History of Present Illness Date of Service: 04/15/25 Chief Complaint: R holliday wound History of Wound: Karina Santana is a 79 y/o female who presents today for evaluation and management of a R holliday wound. She reports that this ulceration began as a large fluid-filled blister which then ruptured leaving behind this wound. When this first occurred in December, it was complicated by cellulitis for which she had a hospital admission 12/27-12/31 for IV antibiotic therapy and then was discharged on Augmentin for 14 days which she completed. Since being home, she has been caring for it primarily by wiping with shower wipes and bactine multiple times per day and then covering with gauze. She does have significant lymphedema which has been present over 10 years. She reports this is hereditary, her mother had it as well. She states she used to wrap her legs but got tired of doing so and admittedly has not been applying compression for a while. She has also been evaluated previously by Dr. Villa who placed venous stents in 2020, she reports this did not make any difference in her swelling; she is chronically anticoagulated with Eliquis reportedly due to the presence of these stents. She reports she saw him a few months ago and they were reportedly no concerns regarding the patency of her stents. She states her swelling has not acutely worsened at any point recently. He had directed her to order some compression wraps from [employer] however she could not find any in a size that would fit her. Her medical history is also significant for Lupus, RA, and Sjogren's syndrome for which she follows with rheumatology and takes methotrexate. She is not diabetic. She does not smoke. Her mobility is limited due to pain from her autoimmune conditions and her severe lymphedema. Subjective Subjective She has continued to do well with the 3M wraps. This time, she removed them several hours before her appointment in order to apply the ammonium lactate lotion and allow this to soak in before showering. As such, her R calf edema is increased compared to what it has been. However, she notes her legs are still overall feeling much better, she continues to notice her improved mobility. She did receive circaids, she brought them with her today to learn how to apply. She has received call from [employer] but they are playing phone tag. Objective Data Objective Data Vital Signs: Vital Signs Temp Pulse Resp BP O2 Del Method 97.2 F L 100 22 H 178/102 H Room Air 04/15/25 15:00 04/15/25 15:00 04/15/25 15:00 04/15/25 15:00 04/08/25 15:01 Oxygen Delivery Method Room Air Charges/Coding Visit Charges Office Visits / Consults: 38377 OV L3 Est 20min Physical Exam Const alert, oriented x3 and no apparent distress General Appearance: cooperative HEENT normocephalic, head/scalp atraumatic, hearing grossly normal bilaterally, external ears normal and external nose normal Eyes General Eye: normal appearance of both eyes Neck General: normal visual inspection and trachea midline Lymph Lymphatic: lymphedema elephantiasis Resp normal respiratory effort and normal air movement Effort and Inspection: able to speak in complete sentences; Negative for labored, grunting or stridor Cardio regular rate and regular rhythm Extremity Extremity Narrative: Significant bilateral lower 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 Circumference measurements as follows (centimeters): Right Calf: 57 Right Ankle: 35 Left Calf: 52.8 Left Ankle: 34.5 Skin Wounds: wounds noted Wound Narrative: R holliday with superficial ulceration is completely epithelialized. Neuro CN's II-XII intact bilaterally, moves all extremities and no focal motor deficits Speech: speech normal Psych mental status grossly normal Appearance: grossly normal Attitude: calm and engaged Activity / Motor Behavior: appropriate eye contact Speech: normal speech Debridement Note Debridement Note No debridement was completed: No debridement was completed today Post-Debridement Measurements and Additional Note: Post-Debridement Measurements/Treatment WC - Nurse 1 - General Ulcer Assessment Start: 04/01/25 14:29 Freq: Status: Active Protocol: VICK Activity Type Activity Date Activity User E-sign Co-sign Detail Recorded Client Recorded Date Recorded By Document 04/01/25 14:32 DL [id number] 04/01/25 14:35 DL Document 04/08/25 15:01 KW [id number] 04/08/25 15:02 KW Document 04/15/25 15:00 DL [id number] 04/15/25 15:03 DL 04/01/25 04/08/25 04/15/25 14:32 15:01 15:00 ALICIA - Today's Visit Information Type of service Follow-up Visit Follow-up Visit Follow-up Visit (Physician/SOLAR MAINTENANCE TECHNICIAN (Physician/SOLAR MAINTENANCE TECHNICIAN (Physician/SOLAR MAINTENANCE TECHNICIAN ) ) ) Arrival Mode Ambulatory, Ambulatory, Walker Walker Walker Transfer Assistance Manual Manual Transfer Assist (Other) x1 X2 Patient Identification Verified (Name & Yes Yes Yes ) Patient Requires Transmission-Based No No Precautions Vital Signs Temperature (97.8 F-99.1 F) 97.6 F L 98.4 F 97.2 F L Temperature Source Temporal Temporal Temporal Pulse Rate (60-100) 94 92 100 Pulse Location Monitor Monitor Monitor Respiratory Rate (12-18) 22 H 18 22 H Respiratory rate source Observation Observation Observation Oxygen Delivery Method Room Air Blood Pressure (90/60-120/80) 166/77 H 140/71 H 178/102 H Blood Pressure Mean (mm Hg) 106 94 127 Source Monitor Monitor Monitor Position Semi-Fowlers Blood Pressure Location Right Forearm History Since Last Visit- (Skip if this is Patient's initial visit) Have you changed medications since your No No No last visit? Any new allergies or adverse reactions No No No Had a fall/change in ADL's that may No No No increase risk of falls Signs or symptoms of abuse and/or No No No neglect since last visit Have you been in the hospital since your No No No last visit? Has dressing in place as prescribed No Yes Has compression in place as prescribed No No Yes Has offloadiing in place as prescribed N/A N/A N/A Experienced any changes in pain level or No Yes management Left Footwear Regular Shoe Right Footwear Regular Shoe Pain Scale: 0-10 Numeric Is Patient Pain Free? Yes Yes Yes WC - Nurse 1 - General Ulcer Measurement Start: 04/01/25 14:29 Freq: Status: Active Protocol: Activity Type Activity Date Activity User E-sign Co-sign Detail Recorded Client Recorded Date Recorded By Document 04/01/25 14:32 DL [id number] 04/01/25 14:35 DL Document 04/08/25 15:01 KW [id number] 04/08/25 15:02 KW Document 04/15/25 15:00 DL [id number] 04/15/25 15:03 DL 04/01/25 04/08/25 04/15/25 14:32 15:01 15:00 Wound Center Nurse 1 Right Calf (cm) 49 51 57 Right Ankle (cm) 35 34 35 Left Calf (cm) 55 52.5 52.8 Left Ankle (cm) 35.2 34.5 34.5 WC - Nurse 2 - General Ulcer CM Notes Start: 04/01/25 14:29 Freq: Status: Active Protocol: Activity Type Activity Date Activity User E-sign Co-sign Detail Recorded Client Recorded Date Recorded By Document 04/01/25 14:51 GM [id number] 04/01/25 14:51 GM Document 04/08/25 15:06 GM [id number] 04/08/25 15:06 Document 04/15/25 15:32 GM [id number] 04/15/25 15:33 GM 04/01/25 04/08/25 04/15/25 14:51 15:06 15:32 Pain Scale: 0-10 Numeric Is Patient Pain Free? Yes Yes Yes - Nurse 3 - General Ulcer D/C NN Start: 04/01/25 14:29 Freq: Status: Active Protocol: Activity Type Activity Date Activity User E-sign Co-sign Detail Recorded Client Recorded Date Recorded By Document 04/01/25 15:11 DL [id number] 04/01/25 15:12 DL Document 04/08/25 15:29 BMF [id number] 04/08/25 15:30 BMF 04/01/25 04/08/25 15:11 15:29 Wound Care Center Nurse 3 BLE -Lotion applied to leg before Yes compression wrap -Multi-Layered Wrap Application Multi-Layer Multi-Layer Comp - Bilat ($ Comp - Bilat ($ ) ) -Other APPLIED PER KW NUCLEAR PHYSICS TEACHER -Multi-Layer Compression Bilat (Qty 2 1 applied) Treatment Response Procedure Tolerated Well Pain Scale: 0-10 Numeric Is Patient Pain Free? Yes Yes - Visit Discharge Discharge Condition Stable Stable Ambulatory Status Ambulatory, Wheelchair Walker Transportation Private Auto Private Auto Accompanied by family Assessment/Plan Assessment/Plan (1) Lymphedema: CODE(S): I89.0 - Lymphedema, not elsewhere classified (2) Rheumatoid arthritis: CODE(S): M06.9 - Rheumatoid arthritis, unspecified (3) Lupus: (4) Sjogren syndrome: CODE(S): M35.00 - Sjogren syndrome, unspecified (5) Debility: CODE(S): R53.81 - Other malaise PLAN: Plan She receive Circaids instead of [place] wraps but I think these should work well also. She is not sure she will be able to apply the black stocking with her R calf swelling right now, will provide tubigrips to use instead as needed for now. Otherwise, she was instructed as to how to apply the Circaids and will utilize these over this next week for compression. She is to apply these first thing in the morning and wear them all day, remove before bed. She has been playing phone tag with [facility] but will continue to try to contact them to set up her lymphedema pump trial. No recurrent wounds. She will return to the office in 1 week, sooner as needed.
[2025-04-22 14:36] VITALS: BP 153/81; PULSE 84; RESP 20; TEMP 36.2
--- NOTE | 2025-04-22 16:16 | PCM.WC.PN ---
History of Present Illness Date of Service: 04/22/25 Chief Complaint: R holliday wound History of Wound: Karina Santana is a 79 y/o female who presents today for evaluation and management of a R holliday wound. She reports that this ulceration began as a large fluid-filled blister which then ruptured leaving behind this wound. When this first occurred in December, it was complicated by cellulitis for which she had a hospital admission 12/27-12/31 for IV antibiotic therapy and then was discharged on Augmentin for 14 days which she completed. Since being home, she has been caring for it primarily by wiping with shower wipes and bactine multiple times per day and then covering with gauze. She does have significant lymphedema which has been present over 10 years. She reports this is hereditary, her mother had it as well. She states she used to wrap her legs but got tired of doing so and admittedly has not been applying compression for a while. She has also been evaluated previously by Dr. Villa who placed venous stents in 2020, she reports this did not make any difference in her swelling; she is chronically anticoagulated with Eliquis reportedly due to the presence of these stents. She reports she saw him a few months ago and they were reportedly no concerns regarding the patency of her stents. She states her swelling has not acutely worsened at any point recently. He had directed her to order some compression wraps from [employer] however she could not find any in a size that would fit her. Her medical history is also significant for Lupus, RA, and Sjogren's syndrome for which she follows with rheumatology and takes methotrexate. She is not diabetic. She does not smoke. Her mobility is limited due to pain from her autoimmune conditions and her severe lymphedema. Subjective Subjective Karina returns today for f/u of her lymphedema. She has been using Circaids and is tolerating them well and able to apply them. She was able to connect with [facility] and has upcoming appt to trial the pumps. No new wounds or other acute concerns. Objective Data Objective Data Vital Signs: Vital Signs Temp Pulse Resp BP O2 Del Method 97.1 F L 84 20 H 153/81 H Room Air 04/22/25 14:36 04/22/25 14:36 04/22/25 14:36 04/22/25 14:36 04/22/25 14:36 Oxygen Delivery Method Room Air Charges/Coding Visit Charges Office Visits / Consults: 14763 OV L3 Est 20min Physical Exam Const alert, oriented x3 and no apparent distress General Appearance: cooperative HEENT normocephalic, head/scalp atraumatic, hearing grossly normal bilaterally, external ears normal and external nose normal Eyes General Eye: normal appearance of both eyes Neck General: normal visual inspection and trachea midline Lymph Lymphatic: lymphedema elephantiasis Resp normal respiratory effort and normal air movement Effort and Inspection: able to speak in complete sentences; Negative for labored, grunting or stridor Cardio regular rate and regular rhythm Extremity Extremity Narrative: Significant bilateral lower 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 Circumference measurements as follows (centimeters): Right Calf: 52.5 Right Ankle: 33.5 Left Calf: 49.5 Left Ankle: 33.5 Skin Wounds: wounds noted Wound Narrative: R holliday with superficial ulceration is completely epithelialized. Neuro CN's II-XII intact bilaterally, moves all extremities and no focal motor deficits Speech: speech normal Psych mental status grossly normal Appearance: grossly normal Attitude: calm and engaged Activity / Motor Behavior: appropriate eye contact Speech: normal speech Debridement Note Debridement Note No debridement was completed: No debridement was completed today Post-Debridement Measurements and Additional Note: Post-Debridement Measurements/Treatment - Nurse 1 - General Ulcer Assessment Start: 04/01/25 14:29 Freq: Status: Active Protocol: ALICIA.MALINDA Activity Type Activity Date Activity User E-sign Co-sign Detail Recorded Client Recorded Date Recorded By Document 04/01/25 14:32 DL [id number] 04/01/25 14:35 DL Document 04/08/25 15:01 KW [id number] 04/08/25 15:02 KW Document 04/15/25 15:00 DL [id number] 04/15/25 15:03 DL Document 04/22/25 14:36 KW [id number] 04/22/25 14:39 KW 04/01/25 04/08/25 04/15/25 14:32 15:01 15:00 - Today's Visit Information Type of service Follow-up Visit Follow-up Visit Follow-up Visit (Physician/CLINICAL DATA ANALYST (Physician/CLINICAL DATA ANALYST (Physician/CLINICAL DATA ANALYST ) ) ) Arrival Mode Ambulatory, Ambulatory, Walker Walker Walker Transfer Assistance Manual Manual Transfer Assist (Other) x1 X2 Patient Identification Verified (Name & Yes Yes Yes ) Patient Requires Transmission-Based No No Precautions Vital Signs Temperature (97.8 F-99.1 F) 97.6 F L 98.4 F 97.2 F L Temperature Source Temporal Temporal Temporal Pulse Rate (60-100) 94 92 100 Pulse Location Monitor Monitor Monitor Respiratory Rate (12-18) 22 H 18 22 H Respiratory rate source Observation Observation Observation Oxygen Delivery Method Room Air Blood Pressure (90/60-120/80) 166/77 H 140/71 H 178/102 H Blood Pressure Mean (mm Hg) 106 94 127 Source Monitor Monitor Monitor Position Semi-Fowlers Blood Pressure Location Right Forearm History Since Last Visit- (Skip if this is Patient's initial visit) Have you changed medications since your No No No last visit? Any new allergies or adverse reactions No No No Had a fall/change in ADL's that may No No No increase risk of falls Signs or symptoms of abuse and/or No No No neglect since last visit Have you been in the hospital since your No No No last visit? Has dressing in place as prescribed No Yes Has compression in place as prescribed No No Yes Has offloadiing in place as prescribed N/A N/A N/A Experienced any changes in pain level or No Yes management Left Footwear Regular Shoe Right Footwear Regular Shoe Pain Scale: 0-10 Numeric Is Patient Pain Free? Yes Yes Yes 04/22/25 14:36 WC - Today's Visit Information Type of service Arrival Mode Transfer Assistance Transfer Assist (Other) Patient Identification Verified (Name & ) Patient Requires Transmission-Based Precautions Vital Signs Temperature (97.8 F-99.1 F) 97.1 F L Temperature Source Oral Pulse Rate (60-100) 84 Pulse Location Monitor Respiratory Rate (12-18) 20 H Respiratory rate source Observation Oxygen Delivery Method Room Air Blood Pressure (90/60-120/80) 153/81 H Blood Pressure Mean (mm Hg) 105 Source Monitor Position Semi-Fowlers Blood Pressure Location Right Forearm History Since Last Visit- (Skip if this is Patient's initial visit) Have you changed medications since your No last visit? Any new allergies or adverse reactions No Had a fall/change in ADL's that may No increase risk of falls Signs or symptoms of abuse and/or No neglect since last visit Have you been in the hospital since your No last visit? Has dressing in place as prescribed Has compression in place as prescribed No Has offloadiing in place as prescribed N/A Experienced any changes in pain level or No management Left Footwear Regular Shoe Right Footwear Regular Shoe Pain Scale: 0-10 Numeric Is Patient Pain Free? Yes - Nurse 1 - General Ulcer Measurement Start: 04/01/25 14:29 Freq: Status: Active Protocol: Activity Type Activity Date Activity User E-sign Co-sign Detail Recorded Client Recorded Date Recorded By Document 04/01/25 14:32 DL [id number] 04/01/25 14:35 DL Document 04/08/25 15:01 KW [id number] 04/08/25 15:02 KW Document 04/15/25 15:00 DL [id number] 04/15/25 15:03 DL Document 04/22/25 14:36 KW [id number] 04/22/25 14:39 KW 04/01/25 04/08/25 04/15/25 14:32 15:01 15:00 Wound Center Nurse 1 Right Calf (cm) 49 51 57 Right Ankle (cm) 35 34 35 Left Calf (cm) 55 52.5 52.8 Left Ankle (cm) 35.2 34.5 34.5 04/22/25 14:36 Wound Center Nurse 1 Right Calf (cm) 52.5 Right Ankle (cm) 33.5 Left Calf (cm) 49.5 Left Ankle (cm) 33.5 WC - Nurse 2 - General Ulcer CM Notes Start: 04/01/25 14:29 Freq: Status: Active Protocol: Activity Type Activity Date Activity User E-sign Co-sign Detail Recorded Client Recorded Date Recorded By Document 04/01/25 14:51 [id number] 04/01/25 14:51 Document 04/08/25 15:06 GM [id number] 04/08/25 15:06 Document 04/15/25 15:32 GM [id number] 04/15/25 15:33 Document 04/22/25 15:09 [id number] 04/22/25 15:09 04/01/25 04/08/25 04/15/25 14:51 15:06 15:32 Pain Scale: 0-10 Numeric Is Patient Pain Free? Yes Yes Yes 04/22/25 15:09 Pain Scale: 0-10 Numeric Is Patient Pain Free? Yes WC - Nurse 3 - General Ulcer D/C NN Start: 04/01/25 14:29 Freq: Status: Active Protocol: Activity Type Activity Date Activity User E-sign Co-sign Detail Recorded Client Recorded Date Recorded By Document 04/01/25 15:11 DL [id number] 04/01/25 15:12 DL Document 04/08/25 15:29 BMF [id number] 04/08/25 15:30 BMF Document 04/22/25 15:38 KW [id number] 04/22/25 15:38 KW 04/01/25 04/08/25 04/22/25 15:11 15:29 15:38 Wound Care Center Nurse 3 BLE -Lotion applied to leg before Yes compression wrap -Multi-Layered Wrap Application Multi-Layer Multi-Layer Comp - Bilat ($ Comp - Bilat ($ ) ) -Other APPLIED PER KW pt own circaids DIET CONSULTANT -Multi-Layer Compression Bilat (Qty 2 1 applied) Treatment Response Procedure Tolerated Well Pain Scale: 0-10 Numeric Is Patient Pain Free? Yes Yes Yes WC - Visit Discharge Discharge Condition Stable Stable Stable Ambulatory Status Ambulatory, Wheelchair Ambulatory, Walker Walker Transportation Private Auto Private Auto Private Auto Accompanied by family Medication Reconcilliation completed & No provided to patient/care provider Clinical Summary of Care Provided Yes Assessment/Plan Assessment/Plan (1) Lymphedema: CODE(S): I89.0 - Lymphedema, not elsewhere classified (2) Rheumatoid arthritis: CODE(S): M06.9 - Rheumatoid arthritis, unspecified (3) Lupus: (4) Sjogren syndrome: CODE(S): M35.00 - Sjogren syndrome, unspecified (5) Debility: CODE(S): R53.81 - Other malaise PLAN: Plan She has been wearing her Circaids as directed with very good management of her edema over this last week as reflected in her lower extremity measurements which are all reduced. She has an upcoming appt with [facility] to trial the lymphedema pumps. No recurrent wounds. She will return to the office in 2-4 weeks to f/u and see how she is doing with circaids and hopefully lymphedema pumps in place. As long as edema remains controlled and no new wounds anticipate discharge at that time.
== END 2025-04-25 23:59 | disposition home or self-care (01) ==
LOC: WC 14:30
PROVIDERS: Referring Provider Nurse Practitioner Family; Visit Provider Physician Assistant
DX: I89.0 Lymphedema, not elsewhere classified (principal); R60.0 Localized edema; R53.81 Other malaise; M35.00 Sjogren syndrome, unspecified; Z95.5 Presence of coronary angioplasty implant and graft; Z79.01 Long term (current) use of anticoagulants
CPT/HCPCS: 29581; 99213; G0463

== ENCOUNTER 2025-05-27 14:02 | Outpatient (RCR) | payer MEDICARE, SELFPAY ==
[2025-05-27 14:11] VITALS: BP 147/68; PULSE 73; RESP 18; TEMP 35.7
--- NOTE | 2025-05-27 18:05 | PCM.WC.PN ---
History of Present Illness Date of Service: 05/27/25 Chief Complaint: R holliday wound History of Wound: Karina Santana is a 79 y/o female who presents today for evaluation and management of a R holliday wound. She reports that this ulceration began as a large fluid-filled blister which then ruptured leaving behind this wound. When this first occurred in December, it was complicated by cellulitis for which she had a hospital admission 12/27-12/31 for IV antibiotic therapy and then was discharged on Augmentin for 14 days which she completed. Since being home, she has been caring for it primarily by wiping with shower wipes and bactine multiple times per day and then covering with gauze. She does have significant lymphedema which has been present over 10 years. She reports this is hereditary, her mother had it as well. She states she used to wrap her legs but got tired of doing so and admittedly has not been applying compression for a while. She has also been evaluated previously by Dr. Villa who placed venous stents in 2020, she reports this did not make any difference in her swelling; she is chronically anticoagulated with Eliquis reportedly due to the presence of these stents. She reports she saw him a few months ago and they were reportedly no concerns regarding the patency of her stents. She states her swelling has not acutely worsened at any point recently. He had directed her to order some compression wraps from [facility] however she could not find any in a size that would fit her. Her medical history is also significant for Lupus, RA, and Sjogren's syndrome for which she follows with rheumatology and takes methotrexate. She is not diabetic. She does not smoke. Her mobility is limited due to pain from her autoimmune conditions and her severe lymphedema. Subjective Subjective Karina returns today for a wound check. Her wound remains resolved. Her lower extremity edema remains improved. She did receive the lymphedema pumps and has been using them three times a day as prescribed with good results. She is not wearing her compression garments since starting to use the pumps. Objective Data Objective Data Vital Signs: Vital Signs Temp Pulse Resp BP 96.3 F L 73 18 147/68 H 05/27/25 14:11 05/27/25 14:11 05/27/25 14:11 05/27/25 14:11 Charges/Coding Multi Select Codes Visit Charges Office Visit/Consults: 94544 OV L3 Est 20min Physical Exam Const alert, oriented x3 and no apparent distress General Appearance: cooperative HEENT normocephalic, head/scalp atraumatic, hearing grossly normal bilaterally, external ears normal and external nose normal Eyes General Eye: normal appearance of both eyes Neck General: normal visual inspection and trachea midline Lymph Lymphatic: lymphedema elephantiasis Resp normal respiratory effort and normal air movement Effort and Inspection: able to speak in complete sentences; Negative for labored, grunting or stridor Cardio regular rate and regular rhythm Extremity Extremity Narrative: Significant bilateral lower 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 Circumference measurements as follows (centimeters): Right Calf: 50.0 Right Ankle: 35.5 Left Calf: 52 Left Ankle: 36.5 Skin Wounds: wounds noted Wound Narrative: R holliday with superficial ulceration is completely epithelialized. Neuro CN's II-XII intact bilaterally, moves all extremities and no focal motor deficits Speech: speech normal Psych mental status grossly normal Appearance: grossly normal Attitude: calm and engaged Activity / Motor Behavior: appropriate eye contact Speech: normal speech Debridement Note Debridement Note No debridement was completed: No debridement was completed today Post-Debridement Measurements and Additional Note: Post-Debridement Measurements/Treatment - Nurse 1 - General Ulcer Assessment Start: 04/01/25 14:29 Freq: Status: Active Protocol: VICK Activity Type Activity Date Activity User E-sign Co-sign Detail Recorded Client Recorded Date Recorded By Document 04/01/25 14:32 DL [id number] 04/01/25 14:35 DL Document 04/08/25 15:01 KW [id number] 04/08/25 15:02 KW Document 04/15/25 15:00 DL [id number] 04/15/25 15:03 DL Document 04/22/25 14:36 KW [id number] 04/22/25 14:39 KW 04/01/25 04/08/25 04/15/25 14:32 15:01 15:00 - Today's Visit Information Type of service Follow-up Visit Follow-up Visit Follow-up Visit (Physician/CENTRAL OFFICE EQUIPMENT INSTALLER (Physician/CENTRAL OFFICE EQUIPMENT INSTALLER (Physician/CENTRAL OFFICE EQUIPMENT INSTALLER ) ) ) Arrival Mode Ambulatory, Ambulatory, Walker Walker Walker Transfer Assistance Manual Manual Transfer Assist (Other) x1 X2 Patient Identification Verified (Name & Yes Yes Yes ) Patient Requires Transmission-Based No No Precautions Vital Signs Temperature (97.8 F-99.1 F) 97.6 F L 98.4 F 97.2 F L Temperature Source Temporal Temporal Temporal Pulse Rate (60-100) 94 92 100 Pulse Location Monitor Monitor Monitor Respiratory Rate (12-18) 22 H 18 22 H Respiratory rate source Observation Observation Observation Oxygen Delivery Method Room Air Blood Pressure (90/60-120/80) 166/77 H 140/71 H 178/102 H Blood Pressure Mean (mm Hg) 106 94 127 Source Monitor Monitor Monitor Position Semi-Fowlers Blood Pressure Location Right Forearm History Since Last Visit- (Skip if this is Patient's initial visit) Have you changed medications since your No No No last visit? Any new allergies or adverse reactions No No No Had a fall/change in ADL's that may No No No increase risk of falls Signs or symptoms of abuse and/or No No No neglect since last visit Have you been in the hospital since your No No No last visit? Has dressing in place as prescribed No Yes Has compression in place as prescribed No No Yes Has offloadiing in place as prescribed N/A N/A N/A Experienced any changes in pain level or No Yes management Left Footwear Regular Shoe Right Footwear Regular Shoe Pain Scale: 0-10 Numeric Is Patient Pain Free? Yes Yes Yes 04/22/25 14:36 WC - Today's Visit Information Type of service Arrival Mode Transfer Assistance Transfer Assist (Other) Patient Identification Verified (Name & ) Patient Requires Transmission-Based Precautions Vital Signs Temperature (97.8 F-99.1 F) 97.1 F L Temperature Source Oral Pulse Rate (60-100) 84 Pulse Location Monitor Respiratory Rate (12-18) 20 H Respiratory rate source Observation Oxygen Delivery Method Room Air Blood Pressure (90/60-120/80) 153/81 H Blood Pressure Mean (mm Hg) 105 Source Monitor Position Semi-Fowlers Blood Pressure Location Right Forearm History Since Last Visit- (Skip if this is Patient's initial visit) Have you changed medications since your No last visit? Any new allergies or adverse reactions No Had a fall/change in ADL's that may No increase risk of falls Signs or symptoms of abuse and/or No neglect since last visit Have you been in the hospital since your No last visit? Has dressing in place as prescribed Has compression in place as prescribed No Has offloadiing in place as prescribed N/A Experienced any changes in pain level or No management Left Footwear Regular Shoe Right Footwear Regular Shoe Pain Scale: 0-10 Numeric Is Patient Pain Free? Yes WC - Nurse 1 - General Ulcer Measurement Start: 04/01/25 14:29 Freq: Status: Active Protocol: Activity Type Activity Date Activity User E-sign Co-sign Detail Recorded Client Recorded Date Recorded By Document 04/01/25 14:32 DL [id number] 04/01/25 14:35 DL Document 04/08/25 15:01 KW [id number] 04/08/25 15:02 KW Document 04/15/25 15:00 DL [id number] 04/15/25 15:03 DL Document 04/22/25 14:36 KW [id number] 04/22/25 14:39 KW 04/01/25 04/08/25 04/15/25 14:32 15:01 15:00 Wound Center Nurse 1 Right Calf (cm) 49 51 57 Right Ankle (cm) 35 34 35 Left Calf (cm) 55 52.5 52.8 Left Ankle (cm) 35.2 34.5 34.5 04/22/25 14:36 Wound Center Nurse 1 Right Calf (cm) 52.5 Right Ankle (cm) 33.5 Left Calf (cm) 49.5 Left Ankle (cm) 33.5 WC - Nurse 2 - General Ulcer CM Notes Start: 04/01/25 14:29 Freq: Status: Active Protocol: Activity Type Activity Date Activity User E-sign Co-sign Detail Recorded Client Recorded Date Recorded By Document 04/01/25 14:51 [id number] 04/01/25 14:51 Document 04/08/25 15:06 [id number] 04/08/25 15:06 Document 04/15/25 15:32 [id number] 04/15/25 15:33 Document 04/22/25 15:09 [id number] 04/22/25 15:09 04/01/25 04/08/25 04/15/25 14:51 15:06 15:32 Pain Scale: 0-10 Numeric Is Patient Pain Free? Yes Yes Yes 04/22/25 15:09 Pain Scale: 0-10 Numeric Is Patient Pain Free? Yes - Nurse 3 - General Ulcer D/C NN Start: 04/01/25 14:29 Freq: Status: Active Protocol: Activity Type Activity Date Activity User E-sign Co-sign Detail Recorded Client Recorded Date Recorded By Document 04/01/25 15:11 DL [id number] 04/01/25 15:12 DL Document 04/08/25 15:29 BMF [id number] 04/08/25 15:30 BMF Document 04/22/25 15:38 KW [id number] 04/22/25 15:38 KW 04/01/25 04/08/25 04/22/25 15:11 15:29 15:38 Wound Care Center Nurse 3 BLE -Lotion applied to leg before Yes compression wrap -Multi-Layered Wrap Application Multi-Layer Multi-Layer Comp - Bilat ($ Comp - Bilat ($ ) ) -Other APPLIED PER KW pt own circaids PENCIL SORTER -Multi-Layer Compression Bilat (Qty 2 1 applied) Treatment Response Procedure Tolerated Well Pain Scale: 0-10 Numeric Is Patient Pain Free? Yes Yes Yes WC - Visit Discharge Discharge Condition Stable Stable Stable Ambulatory Status Ambulatory, Wheelchair Ambulatory, Walker Walker Transportation Private Auto Private Auto Private Auto Accompanied by family Medication Reconcilliation completed & No provided to patient/care provider Clinical Summary of Care Provided Yes Assessment/Plan Assessment/Plan (1) Lymphedema: CODE(S): I89.0 - Lymphedema, not elsewhere classified (2) Rheumatoid arthritis: CODE(S): M06.9 - Rheumatoid arthritis, unspecified (3) Lupus: (4) Sjogren syndrome: CODE(S): M35.00 - Sjogren syndrome, unspecified (5) Debility: CODE(S): R53.81 - Other malaise PLAN: Plan Her wound remains healed. Her lower extremity edema is overall improved from when she first started coming to the wound center; however, it is a bit worse than when she was here last. I have congratulated her for consistent use of her lymphedema pumps but for optimized management I continue to recommend daily use of her Circaids in addition to using the lymphedema pumps. She is agreeable. She is discharged from the wound healing center today and will return as needed.
== END 2025-05-27 15:28 | disposition home or self-care (01) ==
LOC: WC 14:02
PROVIDERS: Referring Provider Nurse Practitioner Family; Visit Provider Physician Assistant
DX: Z09 Encounter for follow-up examination after completed treatment for conditions other than malignant neoplasm (principal); M06.9 Rheumatoid arthritis, unspecified; R60.0 Localized edema; I89.0 Lymphedema, not elsewhere classified; M35.00 Sjogren syndrome, unspecified; R53.81 Other malaise
CPT/HCPCS: 99213; G0463